=== PATIENT | female | born 1975 | race African-American/Black ===

== ENCOUNTER 2017-09-04 19:18 | Emergency (ER) | payer OTHER ==
[2017-09-04] MEDS: ONDANSETRON PF 4 MG/2 ML VIAL. IV (19:46)
[2017-09-04] MEDS: IV NORMAL SALINE 1000ML BAG 1,000 ML IV (19:46)
[2017-09-04 19:58] LABS: ADD MAN DIFF? NO
[2017-09-04 20:00] LABS: BASO % 0 % (0-3); EOS # 0.1 x10^3/uL (0.0-0.7); EOS % 3 % (0-3); HEMATOCRIT 33.8 % (36.0-47.0); HEMOGLOBIN 11.6 g/dL (12.0-15.5); LYMPH # 1.8 x10^3/uL (1.0-4.8); LYMPH % 44 % (24-48); MEAN CORPUSCULAR HEMOGLOBIN 28 pg (25-35); MEAN CORPUSCULAR HGB CONC 34 g/dL (31-37); MEAN CORPUSCULAR VOLUME 83 fL (79-100); MONO # 0.7 x10^3/uL (0.0-1.1); MONO % 16 % (0-9); NEUT # 1.5 x10^3uL (1.8-7.7); NEUT % 37 % (31-73); PLATELET COUNT 166 x10^3/uL (140-400); WHITE BLOOD COUNT 4.1 x10^3/uL (4.0-11.0)
[2017-09-04 20:18] LABS: TROPONINI < 0.017 ng/mL (0.000-0.055)
[2017-09-04 20:19] LABS: ALBUMIN/GLOBULIN RATIO 0.7 (1.0-1.7); ALK PHOS 93 U/L (46-116); ALT (SGPT) 14 U/L (14-59); ANION GAP 3 (6-14); AST (SGOT) 15 U/L (15-37); BLOOD UREA NITROGEN 7 mg/dL (7-20); BUN/CREATININE RATIO 6 (6-20); CALCIUM 8.5 mg/dL (8.5-10.1); CARBON DIOXIDE 36 mmol/L (21-32); CHLORIDE 105 mmol/L (98-107); CREATININE 1.2 mg/dL (0.6-1.0); GFR 59.3; GLUCOSE 110 mg/dL (70-99); LIPASE 69 U/L (73-393); SODIUM 144 mmol/L (136-145); TOTAL BILIRUBIN 0.3 mg/dL (0.2-1.0); TOTAL PROTEIN 7.4 g/dL (6.4-8.2)
[2017-09-04 20:22] LABS: POTASSIUM 2.7 mmol/L (3.5-5.1)
[2017-09-04] MEDS: POTASSIUM CHLORIDE 20 MEQ TABLET.ER. PO (20:31)
[2017-09-04 20:55] LABS: BILIRUBIN,URINE NEGATIVE (NEG); CLARITY,URINE CLOUDY; COLOR,URINE YELLOW; GLUCOSE,URINE NEGATIVE (NEG); NITRITE,URINE NEGATIVE (NEG); PH,URINE 6.5; PROTEIN,URINE NEGATIVE (NEG-TRACE)
[2017-09-04 21:03] LABS: BACTERIA,URINE MANY /HPF (0-FEW); RBC,URINE 20-40 /HPF (0-2)
[2017-09-04 21:04] LABS: SQUAMOUS EPITHELIAL CELL,UR FEW /LPF
[2017-09-04] MEDS: LIDO:MAALOX 1:1 20 ML SINGLE DOSE. SWSW (21:48)
[2017-09-04] MEDS: IOHEXOL 300 MG/ML 100ML VIAL. IV (22:00)
[2017-09-04] MEDS ORDERED: CONTRAST GIVEN MC (22:00)
[2017-09-04] MEDS: diazePAM 5 MG TABLET PO (22:35)
== END 2017-09-04 23:11 | disposition home or self-care (01) ==
LOC: ER 19:18
DX: R11.2 Nausea with vomiting, unspecified (principal); R10.13 Epigastric pain; R19.7 Diarrhea, unspecified; R05 Cough; E03.9 Hypothyroidism, unspecified; I10 Essential (primary) hypertension; G89.29 Other chronic pain; M54.89 Other dorsalgia; M32.9 Systemic lupus erythematosus, unspecified; E87.6 Hypokalemia; Z90.49 Acquired absence of other specified parts of digestive tract; Z88.0 Allergy status to penicillin
CPT/HCPCS: 36415; 71045; 74177; 80053; 81001; 83690; 84484; 84702; 85025; 87086; 93005; 96361; 96374; 99285-25; J2405; J7030; Q9967

== ENCOUNTER 2021-02-15 16:14 | Emergency (ER) | payer OTHER ==
[~2021-02-15] VITALS: Ht 157.5 cm; Wt 105.0 kg
[~2021-02-15 16:14] MED LIST: GUAI12003 PO; LEVO125T5 PO; METO10TA81 PO; ONDA4TAB12 PO; POTA20TA4 PO; POTA20TA84 PO; PROP10TA PO; SULF1TAB24 PO
[2021-02-15 16:42] VITALS: BP 116/66
[2021-02-15] MEDS ORDERED: CYCL5TAB PO (17:15)
[2021-02-15] MEDS ORDERED: HYDROcodone/APAP 5/325MG 1 TAB TABLET PO ONE (17:15)
[2021-02-15] MEDS ORDERED: KETOROLAC 60 MG/2 ML VIAL. IM ONE (17:15)
[2021-02-15] MEDS ORDERED: IBUP-1007 PO (17:15)
--- NOTE | 2021-02-15 17:15 | PHYS DOC ---
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 She is having lower back pain for last 2 to 3 days that has increased. She states overall she is having lower back pain for the last month. She denies any sharp shooting pain or numbness and tingling, focal weakness. She states she is been taking Aleve. She is rating her pain at 8 out of 10 at this time. She does have a primary care provider but has not made an appointment. Review of Systems: Review of Systems: Constitutional: Denies fever or chills. [] Eyes: Denies change in visual acuity. [] HENT: Denies nasal congestion or sore throat. [] Respiratory: Denies cough or shortness of breath. [] Cardiovascular: Denies chest pain or edema. [] GI: Denies abdominal pain, nausea, vomiting, bloody stools or diarrhea. [] : Denies dysuria. [] Musculoskeletal: +Bilateral lower back pain or denies joint pain. [] Integument: Denies rash. [] Neurologic: Denies headache, focal weakness or sensory changes. [] Endocrine: Denies polyuria or polydipsia. [] Lymphatic: Denies swollen glands. [] Psychiatric: Denies depression or anxiety. [] Heart Score: C/O Chest Pain: No Allergies: Allergies: Allergies Coded Allergies Type Severity Reaction Last Updated Verified Penicillins Allergy Severe swelling and hives 10/09/15 Yes Physical Exam: PE: Constitutional: Well developed, well nourished, no acute distress, non-toxic appearance. [] HENT: Normocephalic, atraumatic, bilateral external ears normal, oropharynx moist, no oral exudates, nose normal. [] Eyes: PERRLA, EOMI, conjunctiva normal, no discharge. [] Neck: Normal range of motion, no tenderness, supple, no stridor. [] Cardiovascular:Heart rate regular rhythm, no murmur [] Lungs & Thorax: Bilateral breath sounds clear to auscultation [] Abdomen: Bowel sounds normal, soft, no tenderness, no masses, no pulsatile masses. [] Skin: Warm, dry, no erythema, no rash. [] Back: No tenderness, no CVA tenderness. [] Extremities: No tenderness, no cyanosis, no clubbing, ROM intact, no edema. [] Neurologic: Alert and oriented X 3, normal motor function, normal sensory function, no focal deficits noted. [] Psychologic: Affect normal, judgement normal, mood normal. [] Normal physical exam Current Patient Data: Vital Signs: Vital Signs Date Time Temp Pulse Resp B/P (MAP) Pulse Ox O2 Delivery O2 Flow Rate FiO2 02/15/21 16:42 98.8 85 20 116/66 (83) 99 Room Air 98.8 EKG: EKG: [] Radiology/Procedures: Radiology/Procedures: [] Course & Med Decision Making: Course & Med Decision Making Pertinent Labs and Imaging studies reviewed. (See chart for details) See HPI. Alert and oriented x4. Ambulatory steady gait. Skin pink warm and dry. Cap refill less than 2 seconds. No focal bony spinal tenderness. Full strengths in range of motion. No extremity edema. No tenderness to her lower back. Neurologically intact. Sensations intact. Denies any loss of bowel bladder. No saddle paresthesia. Patient states she has been using a heating pad at home. Denies any urinary symptoms, fever, abdominal pain, nausea, vomiting, diarrhea. [] Dragon Disclaimer: Dragon Disclaimer: This electronic medical record was generated, in whole or in part, using a voice recognition dictation system. Departure Departure Impression: Primary Impression: Low back strain Qualified Codes: S39.012A - Strain of muscle, fascia and tendon of lower back, initial encounter Disposition: HOME / SELF CARE / HOMELESS Condition: STABLE Referrals: JUANITA RIVERA (PCP) Patient Instructions: Low Back Strain with [facility] Additional Instructions: Follow-up with your primary care provider. Drink plenty of fluids. Take medication as prescribed and with food. Remember muscle relaxers will make you sleepy. Do not work or drive on them. Scripts Cyclobenzaprine Hcl (CYCLOBENZAPRINE HCL) 5 Mg Tablet 1 TAB PO TID, #20 TAB Prov: BRANDIN LUNDBERG MATCHBOOK ASSEMBLER 02/15/21 Ibuprofen (IBUPROFEN) 600 Mg Tablet 600 MG PO PRN Q6HRS PRN for INFLAMMATION, #25 TAB Prov: BRANDIN LUNDBERG APRN 02/15/21 BRANDIN LUNDBERG APRN Feb 15, 2021 17:15
== END 2021-02-15 18:06 | disposition home or self-care (01) ==
LOC: ER 16:14
DX: S39.012A Strain of muscle, fascia and tendon of lower back, initial encounter (principal); J45.909 Unspecified asthma, uncomplicated; I10 Essential (primary) hypertension; E03.9 Hypothyroidism, unspecified; F17.200 Nicotine dependence, unspecified, uncomplicated; Z90.49 Acquired absence of other specified parts of digestive tract; Z98.890 Other specified postprocedural states; Z90.710 Acquired absence of both cervix and uterus; Z88.0 Allergy status to penicillin; X50.9XXA Other and unspecified overexertion or strenuous movements or postures, initial encounter; Y93.89 Activity, other specified; Y92.89 Other specified places as the place of occurrence of the external cause; Y99.8 Other external cause status
CPT/HCPCS: 96372; 99283; J1885

== ENCOUNTER 2021-05-29 12:06 | Emergency (ER) | payer MEDICAID, OTHER ==
[~2021-05-29] VITALS: Ht 157.5 cm; Wt 107.2 kg
[~2021-05-29 12:06] MED LIST changes: +CYCL5TAB PO; +IBUP-1007 PO
[2021-05-29 12:56] LABS: BILIRUBIN,URINE NEGATIVE (NEG); CLARITY,URINE CLOUDY; COLOR,URINE YELLOW; NITRITE,URINE NEGATIVE (NEG); PH,URINE 7.5 (<5.0-8.0); PROTEIN,URINE NEGATIVE (NEG-TRACE)
--- NOTE | 2021-05-29 12:59 | PHYS DOC ---
Past Medical History Past Medical History: Asthma, Hypertension, Hypothyroid Additional Past Medical Histor: SLEEP APNEA Past Surgical History: , Hysterectomy, Tubal ligation, Other Additional Past Surgical Histo: HERNIA Smoking Status: Never Smoker Alcohol Use: None Drug Use: None General Adult EDM: Chief Complaint: FEVER HPI: HPI: Patient is a 45 year old female who presents with 2 weeks of nausea, vomiting, chest pain, cough, chills, lower back pain. She states she last vomited yesterday and it is bile. She states she is vaccinated for Covid but never got tested. She denies abdominal pain, syncope, dizziness, back pain, urinary symptoms, numbness or tingling, focal weakness, vision change. She has a history of tubal ligation, hernia surgery, Covid vaccines x2, asthma, hypertension, hypothyroidism, sleep apnea, , hysterectomy. Rates her discomfort at a 7 out of 10 aching. Review of Systems: Review of Systems: Constitutional: + fever or +chills. [] Eyes: Denies change in visual acuity. [] HENT: Denies nasal congestion or sore throat. [] Respiratory: + Intermittent cough or +shortness of breath. [] Cardiovascular: + Intermittent chest pain or denies edema. [] GI: Denies abdominal pain, nausea, vomiting, bloody stools or diarrhea. [] : Denies dysuria. [] Musculoskeletal: + Low back back pain or joint pain. + Generalized body aches [] Integument: Denies rash. [] Neurologic: Denies headache, focal weakness or sensory changes. [] Endocrine: Denies polyuria or polydipsia. [] Lymphatic: Denies swollen glands. [] Psychiatric: Denies depression or anxiety. [] Heart Score: C/O Chest Pain: Yes HEART Score for Chest Pain: HEART Score for Chest Pain Response (Comments) Value History Slighlty/Non-Suspicious 0 ECG Normal 0 Age >45 - < 65 1 Risk Factors 1 or 2 Risk Factors 1 Troponin < Normal Limit 0 Total 2 Risk Factors: Risk Factors: DM, Current or recent (<one month) smoker, HTN, HLP, family history of CAD, obesity. Risk Scores: Score 0 - 3: 2.5% MACE over next 6 weeks - Discharge Home Score 4 - 6: 20.3% MACE over next 6 weeks - Admit for Clinical Observation Score 7 - 10: 72.7% MACE over next 6 weeks - Early Invasive Strategies Current Medications: Current Medications Medications (Trade) Dose Ordered Sig/Todd Start Time Stop Time Status Last Admin Dose Admin Ketorolac Tromethamine (Toradol 30mg Vial) 30 mg 1X ONCE 05/29/21 12:45 05/29/21 12:46 UNV Ondansetron HCl (Zofran) 4 mg 1X ONCE 05/29/21 12:45 05/29/21 12:46 UNV Sodium Chloride 1,000 ml @ 1,000 mls/hr Q1H 05/29/21 12:45 05/29/21 13:44 UNV Allergies: Allergies: Allergies Coded Allergies Type Severity Reaction Last Updated Verified Penicillins Allergy Severe swelling and hives 10/09/15 Yes Physical Exam: PE: Constitutional: Well developed, well nourished, no acute distress, non-toxic appearance. [] HENT: Normocephalic, atraumatic, bilateral external ears normal, oropharynx mo ist, no oral exudates, nose normal. [] Eyes: PERRLA, EOMI, conjunctiva normal, no discharge. [] Neck: Normal range of motion, no tenderness, supple, no stridor. [] Cardiovascular:Heart rate regular rhythm, no murmur [] Lungs & Thorax: Bilateral upper breath sounds clear lower diminished to auscul tation [] Abdomen: Bowel sounds normal, soft, no tenderness, no masses, no pulsatile masses. [] Skin: Warm, dry, no erythema, no rash. [] Back: No tenderness, no CVA tenderness. [] Extremities: No tenderness, no cyanosis, no clubbing, ROM intact, no edema. [] Neurologic: Alert and oriented X 3, normal motor function, normal sensory function, no focal deficits noted. [] Psychologic: Affect normal, judgement normal, mood normal. [] Current Patient Data: Labs: Laboratory Tests Test 05/29/21 12:40 POC Urine HCG, Qualitative Hcg negative (Negative) Vital Signs: Vital Signs Date Time Temp Pulse Resp B/P (MAP) Pulse Ox O2 Delivery O2 Flow Rate FiO2 05/29/21 12:12 97.7 81 22 124/73 (90) 97 Room Air 97.7 EKG: EK and read by Dr. Muller as a sinus rhythm but no STEMI Radiology/Procedures: Radiology/Procedures: [] Impression: [facility] [address] [place] [address] IMAGING REPORT Signed PATIENT: FRANK SCHAEFER ACCOUNT: [id number] : 1975 LOCATION: ER AGE: 45 SEX: F EXAM STATUS: REG ER ORD. PHYSICIAN: BRANDIN LUNDBERG APRN REASON: CHEST PAIN, COUGH PROCEDURE: PORTABLE CHEST 1V EXAM: XR CHEST 1V 05/29/2021 12:50 PM CLINICAL INDICATION: Chest pain, cough COMPARISON: Chest radiograph 09/04/2017 TECHNIQUE: AP upright view of the chest FINDINGS: The heart and mediastinum are normal. Lungs are well-expanded and clear. No consolidation, pleural effusion, or pneumothorax. Pulmonary vascularity is normal. No acute osseous abnormality. IMPRESSION: Normal chest radiograph. Electronically signed by: Ofe Dawson MD (05/29/2021 1:04 PM) [id number] DICTATED and SIGNED BY: OFE DAWSON MD DATE: 05/29/21 [id number] [address] [address] IMAGING REPORT Signed PATIENT: FRANK SCHAEFER ACCOUNT: [id number] : 1975 LOCATION: ER AGE: 45 SEX: F EXAM STATUS: REG ER ORD. PHYSICIAN: BRANDIN LUNDBERG APRN REASON: nausea, vomting, epigastric pain, elevated liver enzymes PROCEDURE: CT ABD PELV W/ IV CONTRST ONLY CT abdomen pelvis with contrast. HISTORY: Nausea, vomiting, epigastric pain, elevated liver enzymes CT abdomen pelvis was done using 75 mL Isovue-370 contrast. Comparison is made with an old study from August 2017. There is linear atelectasis in both lung bases or scarring without other infiltrates. There is no effusion. There are hepatic cysts. A cyst in the left lobe as increased in size since the old study. Spleen is unremarkable. Adrenal glands are normal. Pancreas is normal. There is a punct ate calculus in the lower right kidney. There is no renal mass. A ureteral calculus is not identified. There are phleboliths in the pelvis. Uterus and ovaries are unremarkable. Appendix is normal. There is no small bowel obstruction. IMPRESSION: 1. Hepatic cysts. 2. Previous cholecystectomy. 3. Punctate intrarenal calculus right kidney. 4. No bowel obstruction. 5. Normal appendix. 6. No other acute finding in the abdomen or pelvis. PQRS Compliance Statement: One or more of the following individualized dose reduction techniques were utilized for this examination: 1. Automated exposure control 2. Adjustment of the mA and/or kV according to patient size 3. Use of iterative reconstruction technique Electronically signed by: Kevyn Vu MD (05/29/2021 2:51 PM) [id number] DICTATED and SIGNED BY: KEVYN VU MD DATE: 05/29/21 [id number] Course & Med Decision Making: Course & Med Decision Making Pertinent Labs and Imaging studies reviewed. (See chart for details) COVID-19 CRITERIA: The patient was evaluated during the global COVID-19 pandemic, and that diagnosis was suspected/considered upon their initial presentation. Their evaluation, treatment and testing was consistent with current guidelines for patients who present with complaints or symptoms that may be related to COVID-19. See HPI. Alert and oriented x4. Ambulatory to steady gait. Speaks in full clear sentences. No respiratory distress. Lungs are clear in upper lobes and diminished in lower lobes. No wheezing or stridor. No extremity edema. Abdomen is soft and nontender. No CVA tenderness. Chest pain is intermittent and more so with movement. Vital signs are within normal limits. She is afebrile. She is not hypoxic. Denies concern for STD or vaginal discharge. UTI present. Rocephin IV given. She is given 1 bag of normal saline bolus. EKG shows no acute findings. Rapid Covid and influenza are negative. CT abdomen pelvis shows no acute findings. [] Dragon Disclaimer: Dragon Disclaimer: This electronic medical record was generated, in whole or in part, using a voice recognition dictation system. COVID-19 Patient Risks: Age 65 or older: No Sign of co-morbidity: Yes Exp to person + for COVID: No Exp to PUI: No Travel from affected area: No Lower respiratory symptoms: Yes Fever: Yes Other: Yes (N,V) PPE Use: Full PPE with N95 mask or PAPR: Yes Departure Departure Impression: Primary Impression: UTI (lower urinary tract infection) Additional Impression: Person under investigation for COVID-19 Disposition: HOME / SELF CARE / HOMELESS Condition: STABLE Referrals: Valdez SINGH MD (PCP) Patient Instructions: Urinary Tract Infection Additional Instructions: Follow-up with your primary care provider. Drink plenty of fluids. Take medication as prescribed and with food. If you begin running a high fever or you cannot keep down any kind of fluids you need to return to the emergency room. Scripts Sulfamethoxazole/Trimethoprim (BACTRIM DS TABLET) 1 Each Tablet 1 TAB PO BID for 7 Days, #14 TAB 0 Refills Prov: BRANDIN LUNDBERG APRN 05/29/21 BRANDIN LUNDBERG APRN May 29, 2021 12:59
[2021-05-29 13:04] LABS: BACTERIA,URINE MANY /HPF (0-FEW); RBC,URINE >40 /HPF (0-2); WBC,URINE 20-40 /HPF (0-4)
--- NOTE | 2021-05-29 13:06 | RAD ---
EXAM: XR CHEST 1V 05/29/2021 12:50 PM CLINICAL INDICATION: Chest pain, cough COMPARISON: Chest radiograph 09/04/2017 TECHNIQUE: AP upright view of the chest FINDINGS: The heart and mediastinum are normal. Lungs are well-expanded and clear. No consolidatio n, pleural effusion, or pneumothorax. Pulmonary vascularity is normal. No acute osseous abnormality. IMPRESSION: Normal chest radiograph. Electronically signed by: Ofe Dawson MD (05/29/2021 1:04 PM) [id number]
[2021-05-29] MEDS: IV NORMAL SALINE 1000ML BAG 1,000 ML IV SCH (13:21)
[2021-05-29] MEDS: KETOROLAC 30 MG/ML VIAL. IVP ONE (13:22)
[2021-05-29] MEDS: ONDANSETRON PF 4 MG/2 ML VIAL. IVP ONE (13:22)
[2021-05-29 13:23] LABS: INFLUENZA A PATIENT NEGATIVE (NEGATIVE); INFLUENZA B PATIENT NEGATIVE (NEGATIVE)
[2021-05-29 13:33] LABS: BASO % 1 % (0-3); EOS # 0.2 x10^3/uL (0.0-0.7); EOS % 4 % (0-3); HEMATOCRIT 35.1 % (36.0-47.0); HEMOGLOBIN 11.5 g/dL (12.0-15.5); LYMPH # 2.9 x10^3/uL (1.0-4.8); LYMPH % 57 % (24-48); MEAN CORPUSCULAR HEMOGLOBIN 27 pg (25-35); MEAN CORPUSCULAR HGB CONC 33 g/dL (31-37); MEAN CORPUSCULAR VOLUME 82 fL (79-100); MONO # 0.3 x10^3/uL (0.0-1.1); MONO % 5 % (0-9); NEUT # 1.7 x10^3/uL (1.8-7.7); NEUT % 33 % (31-73); PLATELET COUNT 164 x10^3/uL (140-400); RED BLOOD COUNT 4.27 x10^6/uL (3.50-5.40); RED CELL DISTRIBUTION WIDTH 14.9 % (11.5-14.5); WHITE BLOOD COUNT 5.1 x10^3/uL (4.0-11.0)
[2021-05-29 13:53] LABS: CALCIUM 8.3 mg/dL (8.5-10.1); CREATININE 1.1 mg/dL (0.6-1.0); GFR 64.7; POTASSIUM 4.1 mmol/L (3.5-5.1)
[2021-05-29] MEDS: cefTRIAXone IV Push 1 GM VIAL. IVP ONE (13:58)
[2021-05-29 14:02] LABS: ALBUMIN 3.5 g/dL (3.4-5.0); ALBUMIN/GLOBULIN RATIO 0.7 (1.0-1.7); MAGNESIUM 2.4 mg/dL (1.8-2.4); TOTAL BILIRUBIN 0.3 mg/dL (0.2-1.0); TOTAL PROTEIN 8.6 g/dL (6.4-8.2)
[2021-05-29] MEDS: IOHEXOL 300 MG/ML 100ML VIAL. IV ONE (14:25)
[2021-05-29] MEDS ORDERED: CONTRAST GIVEN. MC PRN (14:30)
--- NOTE | 2021-05-29 14:35 | EKG ---
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
--- NOTE | 2021-05-29 14:53 | RAD ---
CT abdomen pelvis with contrast. HISTORY: Nausea, vomiting, epigastric pain, elevated liver enzymes CT abdomen pelvis was done using 75 mL Isovue-370 contrast. Comparison is made with an old study from August 2017. There is linear atelectasis in both lung bases or scarring without other infiltrates. Ther e is no effusion. There are hepatic cysts. A cyst in the left lobe as increased in size since the old study. Spleen is unremarkable. Adrenal glands are normal. Pancreas is normal. There is a punctate ca lculus in the lower right kidney. There is no renal mass. A ureteral calculus is not identified. Ther e are phleboliths in the pelvis. Uterus and ovaries are unremarkable. Appendix is normal. There is no small bowel obstruction. IMPRESSION: 1. Hepatic cysts. 2. Previous cholecystectomy. 3. Punctate intrarenal calculus right kidney. 4. No bowel obstruction. 5. Normal appendix. 6. No other acute finding in the abdomen or pelvis. PQRS Compliance Statement: One or more of the following individualized dose reduction techniques were utilized for this examinat ion: 1. Automated exposure control 2. Adjustment of the mA and/or kV according to patient size 3. Use of iterative reconstruction technique Electronically signed by: Kevyn Vu MD (05/29/2021 2:51 PM) [id number]
[2021-05-29 15:11] LABS: AMPHETAMINE/METHAMPHETAMINE NEG (NEG); BARBITURATES NEG (NEG); BENZODIAZEPINES NEG (NEG); CANNABINOIDS NEG (NEG); COCAINE NEG (NEG); METHADONE NEG (NEG); OPIATES POS (NEG); PHENCYCLIDINE NEG (NEG)
[2021-05-29 15:18] VITALS: BP 101/72
[2021-05-29] MEDS ORDERED: SULF1TAB24 PO (15:23)
--- NOTE | 2021-05-30 15:56 | NUR ---
IP: Informed pt of negative covid test. She verbalized understanding.
== END 2021-05-29 15:31 | disposition home or self-care (01) ==
LOC: ER 12:06
DX: N39.0 Urinary tract infection, site not specified (principal); Z20.822 Contact with and (suspected) exposure to COVID-19; R07.89 Other chest pain; R11.2 Nausea with vomiting, unspecified; J45.909 Unspecified asthma, uncomplicated; I10 Essential (primary) hypertension; E03.9 Hypothyroidism, unspecified; Z90.710 Acquired absence of both cervix and uterus; Z98.51 Tubal ligation status; Z88.0 Allergy status to penicillin
CPT/HCPCS: 36415; 71045; 74177; 80053; 80307; 81001; 81025; 83690; 83735; 84484; 85025; 87077; 87086; 87186; 87428; 93005; 96361; 96374; 96375; 99285; J0696; J1885; J2405; J7030; Q9967; U0003; U0005

== ENCOUNTER → 2021-07-03 | Outpatient (CLI) | payer MEDICAID ==
--- NOTE | 2021-07-03 15:59 | RAD ---
XR LUMBAR SPINE 4+V DATE: 07/03/2021 1:58 PM INDICATION: LUMBAR BACK PAIN COMPARISON: CT abdomen pelvis 05/29/2021. FINDINGS: Five non-rib bearing lumbar-type vertebral bodies are present. Bones/Alignment: No evidence of acute compression fracture. There is no listhesis. Joints: Mild degenerative disc disease. Miscellaneous: None. IMPRESSION: Mild lumbar spondylosis. Electronically signed by: Thomas Pena MD (07/03/2021 3:57 PM) [id number]
== END ==
LOC: RAD 13:44
PROVIDERS: ATTEND Family Medicine
DX: M47.816 Spondylosis without myelopathy or radiculopathy, lumbar region (principal); M51.36 Other intervertebral disc degeneration, lumbar region
CPT/HCPCS: 72110

== ENCOUNTER 2021-07-14 06:29 | Observation (INO) | payer MEDICAID ==
[2021-07-14] VITALS (9 sets, daily range): BP systolic 87–102; BP diastolic 51–58
[~2021-07-14] VITALS: Ht 160 cm; Wt 109.0 kg
--- NOTE | 2021-07-14 06:46 | PHYS DOC ---
Past Medical History Past Medical History: Asthma, Hypertension, Hypothyroid Additional Past Medical Histor: SLEEP APNEA Past Surgical History: , Hysterectomy, Tubal ligation, Other Additional Past Surgical Histo: HERNIA Smoking Status: Never Smoker Alcohol Use: None Drug Use: None General Adult EDM: Chief Complaint: ABDOMINAL PAIN HPI: HPI: 45-year-old female past medical history of asthma, hypertension and hypothyroidism, presents the ED with complaints of bilateral diffuse upper abdominal pain with associated nausea and anorexia that started at 9 PM last night. Reports past surgical history of cholecystectomy. Normal brown bowel m ovement last night. Is vaccinated for COVID. Review of Systems: Review of Systems: Constitutional: Denies fever or chills. [] Eyes: Denies change in visual acuity. [] HENT: Denies nasal congestion or sore throat. [] Respiratory: Denies cough or shortness of breath. [] Cardiovascular: Denies chest pain or edema. [] GI: Denies bloody stools or diarrhea. [] : Denies dysuria or hematuria Musculoskeletal: Denies back pain or joint pain. [] Integument: Denies rash or diaphoresis Neurologic: Denies headache, focal weakness or sensory changes. [] Endocrine: Denies polyuria or polydipsia. [] Lymphatic: Denies swollen glands. [] Psychiatric: Denies depression or anxiety. [] Heart Score: C/O Chest Pain: No Risk Factors: Risk Factors: DM, Current or recent (<one month) smoker, HTN, HLP, family history of CAD, obesity. Risk Scores: Score 0 - 3: 2.5% MACE over next 6 weeks - Discharge Home Score 4 - 6: 20.3% MACE over next 6 weeks - Admit for Clinical Observation Score 7 - 10: 72.7% MACE over next 6 weeks - Early Invasive Strategies Allergies: Allergies: Allergies Coded Allergies Type Severity Reaction Last Updated Verified Penicillins Allergy Severe swelling and hives 10/09/15 Yes Physical Exam: PE: Constitutional: no acute distress, non-toxic appearance. HENT: Normocephalic, atraumatic, dry mucous membranes Eyes: EOMI, conjunctiva normal, no discharge. Neck: Normal range of motion, supple, Cardiovascular: S1/2 present, regular rhythm Lungs & Thorax: Speaking in full sentences, bilateral equal chest rise, no tachypnea or increased work of breathing Abdomen: soft, diffuse tenderness, tolerates palpation right lower quadrant Skin: Warm, dry, no erythema, no rash. [] Extremities: No tenderness, no cyanosis, no lower extremity edema Neurologic: Alert and oriented X 3, normal motor function, normal sensory function, no focal deficits noted. [] Psychologic: Affect normal, judgement normal, mood normal. [] EKG: EKG: [] Radiology/Procedures: Radiology/Procedures: []IMAGING REPORT Signed PATIENT: FRANK SCHAEFER ACCOUNT: [id number] : 1975 LOCATION: ER AGE: 45 SEX: F EXAM STATUS: PRE ER ORD. PHYSICIAN: CHERY MORROW DO REASON: abd pain PROCEDURE: CT ABD PELV W/ IV CONTRST ONLY CT abdomen pelvis with contrast. HISTORY: Abdominal pain CT abdomen pelvis was done using 60 mL Omnipaque 300 contrast. Comparison is made with a study from May 29. There is mild atelectasis in the lung bases without other infiltrates. There is no pleural effusion. There are hepatic cysts without change from the old study. Spleen is normal. Adrenal glands are normal. Pancreas is unremarkable. There is a calculus in the lower pole of the right kidney without change. There are phleboliths in the pelvis. The appendix is enlarged with periappendiceal inflammation consistent with an acute appendicitis. The appendix is retrocecal in location. There is no free air. Free fluid in the pelvis. Uterus and ovaries are unremarkable. There is no bowel obstruction. IMPRESSION: 1. Acute appendicitis. 2. Punctate calculus right kidney PQRS Compliance Statement: One or more of the following individualized dose reduction techniques were util ized for this examination: 1. Automated exposure control 2. Adjustment of the mA and/or kV according to patient size 3. Use of iterative reconstruction technique Electronically signed by: Kevyn Vu MD (07/14/2021 8:24 AM) [id number] DICTATED and SIGNED BY: KEVYN VU MD DATE: 07/14/21 0818 Course & Med Decision Making: Course & Med Decision Making Pertinent Labs and Imaging studies reviewed. (See chart for details) Concern for acute appendicitis. Has been n.p.o. for more than 12 hours. Is vaccinated for COVID. Small leukocytosis with no shift on labs. Labs also show hypokalemia, replacement started in the ED. Patient with chronic renal failure. Will admit for further medical management with surgery consulted. Spoke to Dr. Delgado (gen surgery) regarding this patient. I have spoken with the patient and/or caregivers. I have explained the patient's condition, diagnosis and treatment plan based on the information available to me at this time. I have answered the patient's and/or caregivers questions and answered any concerns. The patient and/or caregivers have as good an understanding of the patient's diagnosis, condition and treatment plan as can be expected at this point. The patient has been stabilized within the capability of the emergency department. The patient will be transported for further care and management or will be moved to an observation or inpatient service. I have communicated with the staff or medical practitioner taking over this patient's care. Dragon Disclaimer: Dragon Disclaimer: This electronic medical record was generated, in whole or in part, using a voice recognition dictation system. Departure Departure Impression: Primary Impression: Acute appendicitis Additional Impressions: Renal insufficiency Hypokalemia Disposition: ADMITTED INPATIENT Admitting Physician: LOPEZ (Dr. Epps) Condition: STABLE Referrals: Valdez SINGH MD (PCP) CHERY MORROW DO Jul 14, 2021 06:46
[2021-07-14 06:50] LABS: BASO % 0 % (0-3); EOS # 0.1 x10^3/uL (0.0-0.7); EOS % 1 % (0-3); HEMATOCRIT 35.7 % (36.0-47.0); HEMOGLOBIN 11.7 g/dL (12.0-15.5); LYMPH # 1.5 x10^3/uL (1.0-4.8); LYMPH % 12 % (24-48); MEAN CORPUSCULAR HEMOGLOBIN 26 pg (25-35); MEAN CORPUSCULAR HGB CONC 33 g/dL (31-37); MEAN CORPUSCULAR VOLUME 80 fL (79-100); MONO # 0.9 x10^3/uL (0.0-1.1); MONO % 7 % (0-9); NEUT # 9.6 x10^3/uL (1.8-7.7); NEUT % 80 % (31-73); PLATELET COUNT 224 x10^3/uL (140-400); RED BLOOD COUNT 4.47 x10^6/uL (3.50-5.40); RED CELL DISTRIBUTION WIDTH 14.4 % (11.5-14.5); WHITE BLOOD COUNT 12.1 x10^3/uL (4.0-11.0)
[2021-07-14 07:30] LABS: PREG TEST PT QUAL NEGATIVE (NEG)
[2021-07-14 07:33] LABS: ALBUMIN 3.9 g/dL (3.4-5.0); CALCIUM 9.7 mg/dL (8.5-10.1); CREATININE 1.4 mg/dL (0.6-1.0); DIRECT BILIRUBIN 0.1 mg/dL (0.0-0.2); TOTAL BILIRUBIN 0.4 mg/dL (0.2-1.0)
[2021-07-14 07:37] LABS: POTASSIUM 2.9 mmol/L (3.5-5.1)
[2021-07-14] MEDS ORDERED: IOHEXOL 300 MG/ML 100ML VIAL. IV ONE (08:00)
[2021-07-14] MEDS ORDERED: CONTRAST GIVEN. MC PRN (08:15)
--- NOTE | 2021-07-14 08:26 | RAD ---
CT abdomen pelvis with contrast. HISTORY: Abdominal pain CT abdomen pelvis was done using 60 mL Omnipaque 300 contrast. Comparison is made with a study from F ebruary 1. There is mild atelectasis in the lung bases without other infiltrates. There is no pleural effusion. There are hepatic cysts without change from the old study. Spleen is normal. Adrenal gland s are normal. Pancreas is unremarkable. There is a calculus in the lower pole of the right kidney wit hout change. There are phleboliths in the pelvis. The appendix is enlarged with periappendiceal infla mmation consistent with an acute appendicitis. The appendix is retrocecal in location. There is no fr ee air. Free fluid in the pelvis. Uterus and ovaries are unremarkable. There is no bowel obstruction. IMPRESSION: 1. Acute appendicitis. 2. Punctate calculus right kidney PQRS Compliance Statement: One or more of the following individualized dose reduction techniques were utilized for this examinat ion: 1. Automated exposure control 2. Adjustment of the mA and/or kV according to patient size 3. Use of iterative reconstruction technique Electronically signed by: Kevyn Vu MD (07/14/2021 8:24 AM) [id number]
[2021-07-14] MEDS ORDERED: IV NORMAL SALINE 1000ML BAG 1,000 ML IV SCH (08:30)
[2021-07-14] MEDS ORDERED: MORPHINE SULFATE 4 MG/ML INJ. IVP PRN (08:30)
[2021-07-14] MEDS ORDERED: cefOXitin SODIUM IV Push 2 GM VIAL. IVP ONE (08:45)
[2021-07-14] MEDS ORDERED: ONDANSETRON PF 4 MG/2 ML VIAL. IVP ONE (08:45)
[2021-07-14] MEDS ORDERED: BUPIVACAINE-EPI 0.25%-1:200000 MPF 30 ML VIAL. ONE (08:59)
[2021-07-14] MEDS: POTASSIUM CHLORIDE 10MEQ 100 ML IV SCH ×4 (09:04→13:55)
[2021-07-14] MEDS ORDERED: PROCHLORPERAZINE 10 MG/2 ML VIAL. IVP PRN (09:15)
[2021-07-14] MEDS ORDERED: IV RINGERS,LACTATED 1000ML 1,000 ML IV SCH (09:15)
[2021-07-14] MEDS ORDERED: fentaNYL PF VIAL 100 MCG/2 ML VIAL IVP PRN ×2 (09:15)
[2021-07-14] MEDS ORDERED: HYDROmorphone 2 MG/ML INJ. IVP PRN (09:15)
[2021-07-14] MEDS ORDERED: ROCURONIUM 50 MG/5 ML VIAL. ONE (09:32)
[2021-07-14] MEDS ORDERED: LIDOCAINE 2% PF 5 ML VIAL. ONE (09:33)
[2021-07-14] MEDS ORDERED: PROPOFOL 10 MG/ML (20ML) VIAL. IV ONE (09:33)
[2021-07-14] MEDS ORDERED: ONDANSETRON PF 4 MG/2 ML VIAL. ONE (09:33)
[2021-07-14] MEDS ORDERED: fentaNYL PF VIAL 100 MCG/2 ML VIAL ONE (09:33)
[2021-07-14] MEDS ORDERED: DEXAMETHASONE SOD PHOS 4 MG/ML VIAL ONE (09:33)
--- NOTE | 2021-07-14 09:43 | PDOC2 ---
CONSULT Date of Consult Date of Consult DATE: 07/14/21 TIME: 09:40 Reason for Consult Reason for Consult: Acute appendicitis Referring Physician Referring Physician: Nidhi Identification/Chief Complaint Chief Complaint Abdominal pain Source Source: Chart review, Patient History of Present Illness Reason for Visit: 45-year-old female who is seen in the emergency department with complaints of right lower quadrant abdominal pain nausea for the last 24 hours. Mildly elevated white count CT scan shows signs consistent with acute appendicitis without rupture or abscess Past Medical History Cardiovascular: HTN Pulmonary: Asthma GI: No pertinent hx Heme/Onc: No pertinent hx Hepatobiliary: No pertinent hx Psych: No pertinent hx Rheumatologic: No pertinent hx ENT: No pertinent hx Renal/: No pertinent hx Endocrine: No pertinent hx Dermatology: No pertinent hx Past Surgical History Past Surgical History: , Hernia Repair, Tubal Ligation Family History Family History: No Significant Social History No ALCOHOL: none Drugs: None Lives: with Family Current Problem List Problem List Problems Medical Problems: (1) Acute appendicitis Status: Acute (2) Hypokalemia Status: Acute (3) Renal insufficiency Status: Acute Current Medications Current Medications Current Medications Iohexol (Omnipaque 300 Mg/ml) 60 ml 1X ONCE IV Last administered on 07/14/21at 08:09; Start 07/14/21 at 08:00; Stop 07/14/21 at 08:01; Status DC Info (CONTRAST GIVEN -- Rx MONITORING) 1 each PRN DAILY PRN MC SEE COMMENTS; Start 07/14/21 at 08:15; Stop 07/14/21 at 09:37; Status DC Cefoxitin Sodium (Mefoxin) 2 gm 1X ONCE IVP Last administered on 07/14/21at 09:01; Start 07/14/21 at 08:45; Stop 07/14/21 at 08:46; Status DC Morphine Sulfate (Morphine Sulfate) 4 mg PRN Q2HR PRN IVP PAIN Last administered on 07/14/21at 08:48; Start 07/14/21 at 08:30; Stop 07/14/21 at 09:37; Status DC Sodium Chloride 1,000 ml @ 100 mls/hr Q10H IV Last administered on 07/14/21at 08:46; Start 07/14/21 at 08:30; Stop 07/14/21 at 09:37; Status DC Ondansetron HCl (Zofran) 4 mg 1X ONCE IVP Last administered on 07/14/21at 08:47; Start 07/14/21 at 08:45; Stop 07/14/21 at 08:46; Status DC Potassium Chloride/Water 100 ml @ 100 mls/hr Q1H IV Last administered on 07/14/21at 09:04; Start 07/14/21 at 09:00; Stop 07/14/21 at 09:37; Status DC Bupivacaine HCl/ Epinephrine Bitart (Sensorcaine-Epi 0.25%-1:965625 Mpf) 30 ml STK-MED ONCE .ROUTE ; Start 07/14/21 at 08:59; Stop 07/14/21 at 08:59; Status DC Fentanyl Citrate (Fentanyl 2ml Vial) 25 mcg PRN Q5MIN PRN IVP MILD PAIN 1-3; Start 07/14/21 at 09:15; Stop 07/14/21 at 09:37; Status DC Fentanyl Citrate (Fentanyl 2ml Vial) 50 mcg PRN Q5MIN PRN IVP MODERATE PAIN 4- 6; Start 07/14/21 at 09:15; Stop 07/14/21 at 09:37; Status DC Morphine Sulfate (Morphine Sulfate) 1 mg PRN Q10MIN PRN IVP SEVERE PAIN 7-10; Start 07/14/21 at 09:15; Stop 07/14/21 at 09:37; Status DC Ringer's Solution 1,000 ml @ 30 mls/hr Q24H IV ; Start 07/14/21 at 09:15; Stop 07/14/21 at 09:37; Status DC Hydromorphone HCl (Dilaudid) 0.5 mg PRN Q10MIN PRN IVP SEVERE PAIN 7-10, 2nd CHOICE; Start 07/14/21 at 09:15; Stop 07/14/21 at 09:37; Status DC Prochlorperazine Edisylate (Compazine) 5 mg PACU PRN PRN IVP NAUSEA, MRX1; Start 07/14/21 at 09:15; Stop 07/14/21 at 09:37; Status DC Rocuronium Warren (Zemuron) 50 mg STK-MED ONCE .ROUTE ; Start 07/14/21 at 09:32; Stop 07/14/21 at 09:33; Status DC Fentanyl Citrate (Fentanyl 2ml Vial) 100 mcg STK-MED ONCE .ROUTE ; Start 06/26 01/17 at 09:33; Stop 07/14/21 at 09:33; Status DC Propofol (Diprivan) 200 mg STK-MED ONCE IV ; Start 07/14/21 at 09:33; Stop at 09:33; Status DC Lidocaine HCl (Lidocaine Pf 2% Vial) 5 ml STK-MED ONCE .ROUTE ; Start 07/14/21 at 09:33; Stop 07/14/21 at 09:34; Status DC Dexamethasone Sodium Phosphate (Decadron) 4 mg STK-MED ONCE .ROUTE ; Start 07/14/21 at 09:33; Stop 07/14/21 at 09:34; Status DC Ondansetron HCl (Zofran) 4 mg STK-MED ONCE .ROUTE ; Start 07/14/21 at 09:33; Stop 07/14/21 at 09:34; Status DC Active Scripts Active Bactrim Ds Tablet (Sulfamethoxazole/Trimethoprim) 1 Each Tablet 1 Tab PO BID 7 Days Cyclobenzaprine Hcl 5 Mg Tablet 1 Tab PO TID Ibuprofen 600 Mg Tablet 600 Mg PO PRN Q6HRS PRN Mucinex (Guaifenesin) 1,200 Mg Tbmp.12hr 1 Tab PO BID Ondansetron Odt (Ondansetron) 4 Mg Tab.rapdis 1 Tab PO PRN Q6-8HRS PRN Potassium Chloride (Potassium Chloride) 20 Meq Tablet.er 20 Meq PO DAILY Reglan (Metoclopramide Hcl) 10 Mg Tablet 1 Tab PO TID Bactrim Ds Tablet (Sulfamethoxazole/Trimethoprim) 1 Each Tablet 1 Tab PO BID Reported K-Tab ER (Potassium Chloride) 20 Meq Tablet.er 20 Meq PO Propranolol Hcl 10 Mg Tablet 10 Mg PO Levothyroxine Sodium 125 Mcg Tablet 250 Mcg PO Allergies Allergies: Coded Allergies: Penicillins (Verified Allergy, Severe, swelling and hives, 07/14/21) Has tolerated rocephin latex (Verified Allergy, Unknown, 07/14/21) ROS General: No: Chills, Night Sweats, Fatigue, Malaise, Appetite, Other PSYCHOLOGICAL ROS: No: Anxiety, Behavioral Disorder, Concentration difficultie, Decreased libido, Depression, Disorientation, Hallucinations, Hostility, Irritablity, Memory difficulties, Mood Swings, Obsessive thoughts, Physical abuse, Sexual abuse, Sleep disturbances, Suicidal ideation, Other Eyes: No Blurry vision, No Decreased vision, No Double vision, No Dry eyes, No Excessive tearing, No Eye Pain, No Itchy Eyes, No Loss of vision, No Photophobia, No Scotomata, No Uses contacts, No Uses glasses, No Other HEENT: No: Heacaches, Visual Changes, Hearing change, Nasal congestion, Nasal discharge, Oral lesions, Sinus pain, Sore Throat, Epistaxis, Sneezing, Snoring, Tinnitus, Vertigo, Vocal changes, Other ALLERGY AND IMMUNOLOGY: No: Hives, Insect Bite Sensitivity, Itchy/Watery Eyes, Nasal Congestion, Post Nasal Drip, Seasonal Allergies, Other Hematological and Lymphatic: No: Bleeding Problems, Blood Clots, Blood Transfusions, Brusing, Night Sweats, Pallor, Swollen Lymph Nodes, Other ENDOCRINE: No: Breast Changes, Galactorrhea, Hair Pattern Changes, Hot Flashes, Malaise/lethargy, Mood Swings, Palpitations, Polydipsia/polyuria, Skin Changes, Temperature Intolerance, Unexpected Weight Changes, Other Breast: No New/Changing Breast Lumps, No Nipple changes, No Nipple discharge, No Other Respiratory: No: Cough, Hemoptysis, Orthopnea, Pleuritic Pain, Shortness of breath, SOB with excertion, Sputum Changes, Stridor, Tachypnea, Wheezing, Other Gastrointestinal: Yes Nausea, Yes Abdominal Pain Genitourinary: No Dysuria, No Frequency, No Incontinence, No Hematuria, No Retention, No Discharge, No Urgency, No Pain, No Flank Pain, No Other, No , No , No , No , No , No , No Musculoskeletal: No Gait Disturbance, No Joint Pain, No Joint Stiffness, No Joint Swelling, No Muscle Pain, No Muscular Weakness, No Pain In:, No Swelling In:, No Other Neurological: No Behavorial Changes, No Bowel/Bladder ControlChng, No Confusion, No Dizziness, No Gait Disturbance, No Headaches, No Impaired Coord/balance, No Memory Loss, No Numbness/Tingling, No Seizures, No Speech Problems, No Tremors, No Visual Changes, No Weakness, No Other Skin: No Dry Skin, No Eczema, No Hair Changes, No Lumps, No Mole Changes, No Mottling, No Nail Changes, No Pruritus, No Rash, No Skin Lesion Changes, No Other, No Acne Physical Exam General: Alert, Oriented X3, Cooperative, mild distress HEENT: Atraumatic, PERRLA, EOMI Lungs: Clear to auscultation, Normal air movement Heart: Regular rate, No murmurs Abdomen: Normal bowel sounds, Soft, Other (Tender to palpation right lower quadrant no peritoneal signs) Extremities: No edema Skin: No significant lesion Neuro: Normal speech Psych/Mental Status: Mental status NL Vitals VITALS Vital Signs Date Time Temp Pulse Resp B/P (MAP) Pulse Ox O2 Delivery O2 Flow Rate FiO2 07/14/21 09:08 16 99 Room Air 07/14/21 08:30 98 126/74 (91) 07/14/21 06:39 97.9 97.9 Labs Labs Laboratory Tests Test 07/14/21 06:35 07/14/21 07:10 07/14/21 08:45 White Blood Count 12.1 x10^3/uL (4.0-11.0) Red Blood Count 4.47 x10^6/uL (3.50-5.40) Hemoglobin 11.7 g/dL (12.0-15.5) Hematocrit 35.7 % (36.0-47.0) Mean Corpuscular Volume 80 fL (79-100) Mean Corpuscular Hemoglobin 26 pg (25-35) Mean Corpuscular Hemoglobin Concent 33 g/dL (31-37) Red Cell Distribution Width 14.4 % (11.5-14.5) Platelet Count 224 x10^3/uL (140-400) Neutrophils (%) (Auto) 80 % (31-73) Lymphocytes (%) (Auto) 12 % (24-48) Monocytes (%) (Auto) 7 % (0-9) Eosinophils (%) (Auto) 1 % (0-3) Basophils (%) (Auto) 0 % (0-3) Neutrophils # (Auto) 9.6 x10^3/uL (1.8-7.7) Lymphocytes # (Auto) 1.5 x10^3/uL (1.0-4.8) Monocytes # (Auto) 0.9 x10^3/uL (0.0-1.1) Eosinophils # (Auto) 0.1 x10^3/uL (0.0-0.7) Basophils # (Auto) 0.0 x10^3/uL (0.0-0.2) Sodium Level 138 mmol/L (136-145) Potassium Level 2.9 mmol/L (3.5-5.1) Chloride Level 96 mmol/L (98-107) Carbon Dioxide Level 31 mmol/L (21-32) Anion Gap 11 (6-14) Blood Urea Nitrogen 14 mg/dL (7-20) Creatinine 1.4 mg/dL (0.6-1.0) Estimated GFR (Cockcroft-Gault) 49.0 Glucose Level 175 mg/dL (70-99) Calcium Level 9.7 mg/dL (8.5-10.1) Total Bilirubin 0.4 mg/dL (0.2-1.0) Direct Bilirubin 0.1 mg/dL (0.0-0.2) Aspartate Amino Transf (AST/SGOT) 24 U/L (15-37) Alanine Aminotransferase (ALT/SGPT) 44 U/L (14-59) Alkaline Phosphatase 146 U/L (46-116) Total Protein 10.0 g/dL (6.4-8.2) Albumin 3.9 g/dL (3.4-5.0) Lipase 28 U/L (73-393) Serum Test, Qualitative Negative (NEG) SARS-CoV-2 Antigen (Rapid) Negative (NEGATIVE) Laboratory Tests Test 07/14/21 06:35 07/14/21 07:10 07/14/21 08:45 White Blood Count 12.1 x10^3/uL (4.0-11.0) Red Blood Count 4.47 x10^6/uL (3.50-5.40) Hemoglobin 11.7 g/dL (12.0-15.5) Hematocrit 35.7 % (36.0-47.0) Mean Corpuscular Volume 80 fL (79-100) Mean Corpuscular Hemoglobin 26 pg (25-35) Mean Corpuscular Hemoglobin Concent 33 g/dL (31-37) Red Cell Distribution Width 14.4 % (11.5-14.5) Platelet Count 224 x10^3/uL (140-400) Neutrophils (%) (Auto) 80 % (31-73) Lymphocytes (%) (Auto) 12 % (24-48) Monocytes (%) (Auto) 7 % (0-9) Eosinophils (%) (Auto) 1 % (0-3) Basophils (%) (Auto) 0 % (0-3) Neutrophils # (Auto) 9.6 x10^3/uL (1.8-7.7) Lymphocytes # (Auto) 1.5 x10^3/uL (1.0-4.8) Monocytes # (Auto) 0.9 x10^3/uL (0.0-1.1) Eosinophils # (Auto) 0.1 x10^3/uL (0.0-0.7) Basophils # (Auto) 0.0 x10^3/uL (0.0-0.2) Sodium Level 138 mmol/L (136-145) Potassium Level 2.9 mmol/L (3.5-5.1) Chloride Level 96 mmol/L (98-107) Carbon Dioxide Level 31 mmol/L (21-32) Anion Gap 11 (6-14) Blood Urea Nitrogen 14 mg/dL (7-20) Creatinine 1.4 mg/dL (0.6-1.0) Estimated GFR (Cockcroft-Gault) 49.0 Glucose Level 175 mg/dL (70-99) Calcium Level 9.7 mg/dL (8.5-10.1) Total Bilirubin 0.4 mg/dL (0.2-1.0) Direct Bilirubin 0.1 mg/dL (0.0-0.2) Aspartate Amino Transf (AST/SGOT) 24 U/L (15-37) Alanine Aminotransferase (ALT/SGPT) 44 U/L (14-59) Alkaline Phosphatase 146 U/L (46-116) Total Protein 10.0 g/dL (6.4-8.2) Albumin 3.9 g/dL (3.4-5.0) Lipase 28 U/L (73-393) Serum Test, Qualitative Negative (NEG) SARS-CoV-2 Antigen (Rapid) Negative (NEGATIVE) Assessment/Plan Assessment/Plan Acute appendicitis plan laparoscopic appendectomy KIMANI MARR MD Jul 14, 2021 09:43
[2021-07-14] MEDS ORDERED: KETOROLAC 30 MG/ML VIAL. ONE (09:55)
[2021-07-14] MEDS ORDERED: SURGICEL HEMOSTAT 4X8 EACH. ONE (10:23)
[2021-07-14] MEDS ORDERED: NEOSTIGMINE METHYLSULFATE 5 MG/5 ML SYRINGE. ONE (10:36)
[2021-07-14] MEDS ORDERED: GLYCOPYRROLATE 1 MG/5 ML VIAL. ONE (10:37)
--- NOTE | 2021-07-14 10:56 | PDOC4 ---
Operative Note Operative Note Date: July 142021 at 10:33 AM Preoperative diagnosis: Acute appendicitis Postoperative diagnosis: Same Procedure: Laparoscopic appendectomy Surgeon: Danny Specimen: Appendix Dictation: Patient is a 45-year-old female with right lower quadrant abdominal pain and a CT scan showing signs consistent with acute appendicitis. Procedure of laparoscopic appendectomy explained to the patient detail risk-benefit were also discussed including bleeding infection injury to intra-abdominal contents possible necessitating further open operations. Alternatives to this procedure also discussed with the patient who seemed to understand and gave a verbal written consent had procedure performed. Patient was taken to the operating room placed in the supine position general anesthesia was initiated once patient was sleeping intubated her abdomen was prepped draped in usual sterile fashion using ChloraPrep. Area in the left upper quadrant was injected with quarter percent Marcaine with epinephrine incision was made 11 blade scalpel and a 5 mm Visiport was placed under direct visualization into the abdomen creating pneumoperitoneum the abdomen was then inspected with 5 mm camera was noted she had quite a few adhesions from the umbilicus down to the pelvis secondary to her and umbilical hernia repair. 5 mm port was placed in the left lower abdomen under direct visualization some adhesions were taken down with sharp dissection a 5 mm port was placed in the right midabdomen and a 12 mm port was placed just above the umbilicus at the midline. The appendix was visualized was retrocecal blunt dissection was used to create a window at the base of the appendix with a [place] dissector Endo EVIN stapler was used to staple and transect the base the appendix was noted there was some bleeding after the appendix been stapled this was controlled with Surgicel the mesoappendix was stapled and transected in a similar fashion. The appendix placed in Endo Catch bag removed and the 12 mm port site the Surgicel was removed the right lower quadrant irrigated and suctioned dry Francesca powder was then placed in the right gutter along where the bleeding had been hemostasis deemed to be appropriate at that point and the pneumoperitoneum was reduced all ports removed the fascial defect at the 12 mm port site was closed with [id number] Vicryl suture and the skin was reapproximated port sites for subcuticular Monocryl Mastisol Steri-Strips and island dressings were applied. Patient was awakened and extubated operating room taken recovery in stable condition all sponge instrument needle counts listed as correct estimated blood loss 30 mL. KIMANI MARR MD Jul 14, 2021 10:56
--- NOTE | 2021-07-14 10:56 | PDOC1 ---
History and Physical Date of Service: DOS: DATE: 07/14/21 TIME: 10:51 Chief Complaint: Chief Complain: Abdominal pain History of Present Illness: HPI: 45-year-old female with past medical history of asthma, hypertension, hypothyroidism who presents with right lower quadrant abdominal pain in the past 24 hours. No other endorsed symptoms. Denies any fevers, chest pain, diarrhea, dysuria, bloody stools or nausea vomiting. Past Medical/Surgical History: PMH/PSH: Past Medical History: Asthma, Hypertension, Hypothyroid Additional Past Medical Histor: SLEEP APNEA Past Surgical History: , Hysterectomy, Tubal ligation, Other Additional Past Surgical Histo: HERNIA Allergies: Allergies: Coded Allergies: Penicillins (Verified Allergy, Severe, swelling and hives, 07/14/21) Has tolerated rocephin latex (Verified Allergy, Unknown, 07/14/21) Family History: Family History: Reviewed with no relative findings in the chart Social History: Social History: Smoking Status: Never Smoker Alcohol Use: None Drug Use: None Current Medications: Current Medications Current Medications Iohexol (Omnipaque 300 Mg/ml) 60 ml 1X ONCE IV Last administered on 07/14/21at 08:09; Start 07/14/21 at 08:00; Stop 07/14/21 at 08:01; Status DC Info (CONTRAST GIVEN -- Rx MONITORING) 1 each PRN DAILY PRN MC SEE COMMENTS; Start 07/14/21 at 08:15; Stop 07/16/21 at 08:14 Cefoxitin Sodium (Mefoxin) 2 gm 1X ONCE IVP Last administered on 07/14/21at 09:01; Start 07/14/21 at 08:45; Stop 07/14/21 at 08:46; Status DC Morphine Sulfate (Morphine Sulfate) 4 mg PRN Q2HR PRN IVP PAIN Last administered on 07/14/21at 08:48; Start 07/14/21 at 08:30; Stop 07/15/21 at 08:29 Sodium Chloride 1,000 ml @ 100 mls/hr Q10H IV Last administered on 07/14/21at 08:46; Start 07/14/21 at 08:30; Stop 07/15/21 at 08:29 Ondansetron HCl (Zofran) 4 mg 1X ONCE IVP Last administered on 07/14/21at 08:47; Start 07/14/21 at 08:45; Stop 07/14/21 at 08:46; Status DC Potassium Chloride/Water 100 ml @ 100 mls/hr Q1H IV Last administered on 06/26 01/17at 09:04; Start 07/14/21 at 09:00; Stop 07/14/21 at 12:59 Bupivacaine HCl/ Epinephrine Bitart (Sensorcaine-Epi 0.25%-1:330808 Mpf) 30 ml STK-MED ONCE .ROUTE Last administered on 07/14/21at 10:05; Start 07/14/21 at 08:59; Stop 07/14/21 at 08:59; Status DC Fentanyl Citrate (Fentanyl 2ml Vial) 25 mcg PRN Q5MIN PRN IVP MILD PAIN 1-3; Start 07/14/21 at 09:15; Stop 07/15/21 at 09:14 Fentanyl Citrate (Fentanyl 2ml Vial) 50 mcg PRN Q5MIN PRN IVP MODERATE PAIN 4- 6; Start 07/14/21 at 09:15; Stop 07/15/21 at 09:14 Morphine Sulfate (Morphine Sulfate) 1 mg PRN Q10MIN PRN IVP SEVERE PAIN 7-10; Start 07/14/21 at 09:15; Stop 07/15/21 at 09:14 Ringer's Solution 1,000 ml @ 30 mls/hr Q24H IV ; Start 07/14/21 at 09:15; Stop 07/14/21 at 21:14 Hydromorphone HCl (Dilaudid) 0.5 mg PRN Q10MIN PRN IVP SEVERE PAIN 7-10, 2nd CHOICE; Start 07/14/21 at 09:15; Stop 07/15/21 at 09:14 Prochlorperazine Edisylate (Compazine) 5 mg PACU PRN PRN IVP NAUSEA, MRX1; Start 07/14/21 at 09:15; Stop 07/15/21 at 09:14 Rocuronium [place]imfield (Zemuron) 50 mg STK-MED ONCE .ROUTE ; Start 07/14/21 at 09:32; Stop 07/14/21 at 09:33; Status DC Fentanyl Citrate (Fentanyl 2ml Vial) 100 mcg STK-MED ONCE .ROUTE ; Start 07/14/21 at 09:33; Stop 07/14/21 at 09:33; Status DC Propofol (Diprivan) 200 mg STK-MED ONCE IV ; Start 07/14/21 at 09:33; Stop 07/14/21 at 09:33; Status DC Lidocaine HCl (Lidocaine Pf 2% Vial) 5 ml STK-MED ONCE .ROUTE ; Start 07/14/21 at 09:33; Stop 07/14/21 at 09:34; Status DC Dexamethasone Sodium Phosphate (Decadron) 4 mg STK-MED ONCE .ROUTE ; Start 07/14/21 at 09:33; Stop 07/14/21 at 09:34; Status DC Ondansetron HCl (Zofran) 4 mg STK-MED ONCE .ROUTE ; Start 07/14/21 at 09:33; Stop 07/14/21 at 09:34; Status DC Ketorolac Tromethamine (Toradol 30mg Vial) 30 mg STK-MED ONCE .ROUTE ; Start at 09:55; Stop 07/14/21 at 09:55; Status DC Cellulose (Surgicel Hemostat 4x8) 1 each STK-MED ONCE .ROUTE Last administered on 07/14/21at 10:05; Start 07/14/21 at 10:23; Stop 07/14/21 at 10:24; Status DC Neostigmine Brimfield (Neostigmine Methylsulfate) 5 mg STK-MED ONCE .ROUTE ; Start 07/14/21 at 10:36; Stop 07/14/21 at 10:36; Status DC Glycopyrrolate (Robinul) 1 mg STK-MED ONCE .ROUTE ; Start 07/14/21 at 10:37; Stop 07/14/21 at 10:37; Status DC Active Scripts Active Bactrim Ds Tablet (Sulfamethoxazole/Trimethoprim) 1 Each Tablet 1 Tab PO BID 7 Days Cyclobenzaprine Hcl 5 Mg Tablet 1 Tab PO TID Ibuprofen 600 Mg Tablet 600 Mg PO PRN Q6HRS PRN Mucinex (Guaifenesin) 1,200 Mg Tbmp.12hr 1 Tab PO BID Ondansetron Odt (Ondansetron) 4 Mg Tab.rapdis 1 Tab PO PRN Q6-8HRS PRN Potassium Chloride (Potassium Chloride) 20 Meq Tablet.er 20 Meq PO DAILY Reglan (Metoclopramide Hcl) 10 Mg Tablet 1 Tab PO TID Bactrim Ds Tablet (Sulfamethoxazole/Trimethoprim) 1 Each Tablet 1 Tab PO BID Reported K-Tab ER (Potassium Chloride) 20 Meq Tablet.er 20 Meq PO Propranolol Hcl 10 Mg Tablet 10 Mg PO Levothyroxine Sodium 125 Mcg Tablet 250 Mcg PO ROS: Review of Systems Review of System REVIEW OF SYSTEMS: GENERAL: Denies weakness SKIN: No bruising, hair changes or rashes. EYES: No blurred, double or loss of vision. NOSE AND THROAT: No history of nosebleeds, hoarseness or sore throat. HEART: No history of palpitations, chest pain or shortness of breath on exertion. LUNGS: Denies cough, hemoptysis, wheezing or shortness of breath. GASTROINTESTINAL: Positive for nausea vomiting abdominal pain GENITOURINARY: No history of frequency, urgency, hesitancy or nocturia. NEUROLOGIC: Denies history of numbness, tingling, or tremor. PSYCHIATRIC: No history of panic, anxiety or depression. ENDOCRINE: No history of heat or cold intolerance, polyuria or polydipsia. EXTREMITIES: Denies joint pain, pain on walking or stiffness. Physical Exam: Vital Signs: Vital Signs Date Time Temp Pulse Resp B/P (MAP) Pulse Ox O2 Delivery O2 Flow Rate FiO2 07/14/21 09:35 98.1 76 20 116/68 99 Room Air 98.1 Physcial Exam: General: Well developed, well nourished, no acute distress, well appearing HEENT: Pupils equally round and reactive to light, EOMI, no discharge, normal conjunctiva Neck: Supple, no nuchal rigidity, no JVD, trachea midline, no tenderness Cardiac: RRR, no murmurs, no gallops, no rubs Chest/Lungs: CTAB, no wheeze, no rhonchi, no crackles Abdomen: soft, non-distended, no guarding, no peritoneal signs, tender to palpation in the right lower quadrant Back: No tenderness Extremities: no edema, pulses intact, non-tender,capillary refill <3 sec bilateral upper and lower extremities, Neuro: Alert and oriented x 4, no focal deficits, normal speech Labs: Labs: Laboratory Tests Test 07/14/21 06:35 07/14/21 07:10 07/14/21 08:45 White Blood Count 12.1 x10^3/uL (4.0-11.0) Red Blood Count 4.47 x10^6/uL (3.50-5.40) Hemoglobin 11.7 g/dL (12.0-15.5) Hematocrit 35.7 % (36.0-47.0) Mean Corpuscular Volume 80 fL (79-100) Mean Corpuscular Hemoglobin 26 pg (25-35) Mean Corpuscular Hemoglobin Concent 33 g/dL (31-37) Red Cell Distribution Width 14.4 % (11.5-14.5) Platelet Count 224 x10^3/uL (140-400) Neutrophils (%) (Auto) 80 % (31-73) Lymphocytes (%) (Auto) 12 % (24-48) Monocytes (%) (Auto) 7 % (0-9) Eosinophils (%) (Auto) 1 % (0-3) Basophils (%) (Auto) 0 % (0-3) Neutrophils # (Auto) 9.6 x10^3/uL (1.8-7.7) Lymphocytes # (Auto) 1.5 x10^3/uL (1.0-4.8) Monocytes # (Auto) 0.9 x10^3/uL (0.0-1.1) Eosinophils # (Auto) 0.1 x10^3/uL (0.0-0.7) Basophils # (Auto) 0.0 x10^3/uL (0.0-0.2) Sodium Level 138 mmol/L (136-145) Potassium Level 2.9 mmol/L (3.5-5.1) Chloride Level 96 mmol/L (98-107) Carbon Dioxide Level 31 mmol/L (21-32) Anion Gap 11 (6-14) Blood Urea Nitrogen 14 mg/dL (7-20) Creatinine 1.4 mg/dL (0.6-1.0) Estimated GFR (Cockcroft-Gault) 49.0 Glucose Level 175 mg/dL (70-99) Calcium Level 9.7 mg/dL (8.5-10.1) Total Bilirubin 0.4 mg/dL (0.2-1.0) Direct Bilirubin 0.1 mg/dL (0.0-0.2) Aspartate Amino Transf (AST/SGOT) 24 U/L (15-37) Alanine Aminotransferase (ALT/SGPT) 44 U/L (14-59) Alkaline Phosphatase 146 U/L (46-116) Total Protein 10.0 g/dL (6.4-8.2) Albumin 3.9 g/dL (3.4-5.0) Lipase 28 U/L (73-393) Serum Test, Qualitative Negative (NEG) SARS-CoV-2 Antigen (Rapid) Negative (NEGATIVE) Laboratory Tests Test 07/14/21 06:35 07/14/21 07:10 07/14/21 08:45 White Blood Count 12.1 x10^3/uL (4.0-11.0) Red Blood Count 4.47 x10^6/uL (3.50-5.40) Hemoglobin 11.7 g/dL (12.0-15.5) Hematocrit 35.7 % (36.0-47.0) Mean Corpuscular Volume 80 fL (79-100) Mean Corpuscular Hemoglobin 26 pg (25-35) Mean Corpuscular Hemoglobin Concent 33 g/dL (31-37) Red Cell Distribution Width 14.4 % (11.5-14.5) Platelet Count 224 x10^3/uL (140-400) Neutrophils (%) (Auto) 80 % (31-73) Lymphocytes (%) (Auto) 12 % (24-48) Monocytes (%) (Auto) 7 % (0-9) Eosinophils (%) (Auto) 1 % (0-3) Basophils (%) (Auto) 0 % (0-3) Neutrophils # (Auto) 9.6 x10^3/uL (1.8-7.7) Lymphocytes # (Auto) 1.5 x10^3/uL (1.0-4.8) Monocytes # (Auto) 0.9 x10^3/uL (0.0-1.1) Eosinophils # (Auto) 0.1 x10^3/uL (0.0-0.7) Basophils # (Auto) 0.0 x10^3/uL (0.0-0.2) Sodium Level 138 mmol/L (136-145) Potassium Level 2.9 mmol/L (3.5-5.1) Chloride Level 96 mmol/L (98-107) Carbon Dioxide Level 31 mmol/L (21-32) Anion Gap 11 (6-14) Blood Urea Nitrogen 14 mg/dL (7-20) Creatinine 1.4 mg/dL (0.6-1.0) Estimated GFR (Cockcroft-Gault) 49.0 Glucose Level 175 mg/dL (70-99) Calcium Level 9.7 mg/dL (8.5-10.1) Total Bilirubin 0.4 mg/dL (0.2-1.0) Direct Bilirubin 0.1 mg/dL (0.0-0.2) Aspartate Amino Transf (AST/SGOT) 24 U/L (15-37) Alanine Aminotransferase (ALT/SGPT) 44 U/L (14-59) Alkaline Phosphatase 146 U/L (46-116) Total Protein 10.0 g/dL (6.4-8.2) Albumin 3.9 g/dL (3.4-5.0) Lipase 28 U/L (73-393) Serum Test, Qualitative Negative (NEG) SARS-CoV-2 Antigen (Rapid) Negative (NEGATIVE) Images: Images PROCEDURE: CT ABD PELV W/ IV CONTRST ONLY CT abdomen pelvis with contrast. HISTORY: Abdominal pain CT abdomen pelvis was done using 60 mL Omnipaque 300 contrast. Comparison is made with a study from May 29. There is mild atelectasis in the lung bases without other infiltrates. There is no pleural effusion. There are hepatic cysts without change from the old study. Spleen is normal. Adrenal glands are normal. Pancreas is unremarkable. There is a calculus in the lower pole of the right kidney without change. There are phleboliths in the pelvis. The appendix is enlarged with periappendiceal inflammation consistent with an acute appen dicitis. The appendix is retrocecal in location. There is no free air. Free fluid in the pelvis. Uterus and ovaries are unremarkable. There is no bowel obstruction. IMPRESSION: 1. Acute appendicitis. 2. Punctate calculus right kidney Assessment/Plan Assessment/Plan Acute abdominal pain secondary to acute appendicitis Severe hypokalemia RUPERTO due to vasomotor nephropathy Hyperglycemia without a reported history of diabetes Elevated alkaline phosphatase Morbid obesity History of asthma History of hypothyroidism History of hypertension Admit to hospitalist service for further management Continue empiric IV antibiotics Keep n.p.o. General surgery consult for laparoscopic appendectomy possible open Lovenox for DVT prophylaxis NPO CODE STATUS full Discussed with RN and SW Disposition on-call to the OR DPOA: Mother Justifications for Admission Other Justification TRI SCHROEDER MD Jul 14, 2021 10:55
[2021-07-14] MEDS ORDERED: diphenhydrAMINE HCL 25 MG CAPSULE PO PRN ×2 (11:00)
[2021-07-14] MEDS ORDERED: ONDANSETRON PF 4 MG/2 ML VIAL. IVP PRN (11:00)
[2021-07-14] MEDS ORDERED: MORPHINE SULFATE 2 MG/ML INJ. IV PRN (11:00)
[2021-07-14] MEDS ORDERED: ZOLPIDEM 5 MG TABLET. PO PRN (11:00)
[2021-07-14] MEDS ORDERED: oxyCODONE/APAP 5/325 1 TAB TABLET PO PRN ×2 (11:00)
[2021-07-14] MEDS ORDERED: MORPHINE SULFATE 2 MG/ML INJ. IVP PRN (11:00)
[2021-07-14] MEDS ORDERED: DEXTROSE 50% 25 GM / 50ML DISP.SYRIN. IV PRN (11:00)
[2021-07-14] MEDS ORDERED: PROCHLORPERAZINE 10 MG/2 ML VIAL. IV PRN (11:00)
[2021-07-14] MEDS ORDERED: ACETAMINOPHEN 325 MG TABLET. PO PRN (11:00)
[2021-07-14] MEDS ORDERED: LORazepam 0.5 MG TABLET PO PRN (11:00)
[2021-07-14] MEDS ORDERED: SEVOFLURANE 61 TO 120 MINUTES. IH ONE (11:13)
[2021-07-14] MEDS ORDERED: MORPHINE SULFATE 2 MG/ML INJ. ONE (11:35)
[2021-07-14] MEDS: MORPHINE SULFATE 2 MG/ML INJ. IVP PRN ×2 (11:39→12:00)
[2021-07-14] MEDS: IV NORMAL SALINE 1000ML BAG 1,000 ML IV SCH ×2 (12:35→21:00)
[2021-07-14] MEDS ORDERED: CYCL10TA19 PO (13:06)
[2021-07-14] MEDS ORDERED: OMEP40CA7 PO (13:06)
[2021-07-14] MEDS ORDERED: MELO7.5T29 PO (13:06)
[2021-07-14] MEDS ORDERED: VARE1TAB23 PO (13:06)
[2021-07-14] MEDS ORDERED: CETI10TA16 PO (13:06)
[2021-07-14] MEDS ORDERED: CHLO25TA2 PO (13:06)
[2021-07-14] MEDS ORDERED: LEVO25TA4 PO (13:06)
[2021-07-14] MEDS ORDERED: PROP80TA PO (13:06)
[2021-07-14] MEDS ORDERED: ALBU8HFA IN (13:06)
[2021-07-14] MEDS: KETOROLAC 15 MG/ML VIAL. IVP SCH ×2 (14:46→17:57)
[2021-07-14] MEDS: DOCUSATE SODIUM 100 MG CAPSULE. PO PRN (20:21)
[2021-07-14] MEDS: oxyCODONE/APAP 5/325 1 TAB TABLET PO PRN (20:21)
[2021-07-14] MEDS: ENOXAPARIN 40 MG/0.4 ML SYRINGE. SQ SCH (20:29)
[2021-07-15] MEDS: diphenhydrAMINE 50 MG/ML VIAL IVP PRN (00:17)
[2021-07-15] MEDS: KETOROLAC 15 MG/ML VIAL. IVP SCH ×4 (00:18→17:40)
[2021-07-15 02:34] VITALS: BP 102/54
[2021-07-15 07:00] VITALS: BP 97/49
[2021-07-15 07:23] LABS: BASO % 0 % (0-3); EOS % 0 % (0-3); HEMATOCRIT 28.6 % (36.0-47.0); HEMOGLOBIN 9.4 g/dL (12.0-15.5); LYMPH # 2.2 x10^3/uL (1.0-4.8); LYMPH % 22 % (24-48); MEAN CORPUSCULAR HEMOGLOBIN 27 pg (25-35); MEAN CORPUSCULAR HGB CONC 33 g/dL (31-37); MEAN CORPUSCULAR VOLUME 81 fL (79-100); MONO # 0.6 x10^3/uL (0.0-1.1); MONO % 7 % (0-9); NEUT % 71 % (31-73); PLATELET COUNT 194 x10^3/uL (140-400); RED BLOOD COUNT 3.54 x10^6/uL (3.50-5.40); RED CELL DISTRIBUTION WIDTH 14.6 % (11.5-14.5); WHITE BLOOD COUNT 9.8 x10^3/uL (4.0-11.0)
[2021-07-15 07:44] LABS: CALCIUM 7.7 mg/dL (8.5-10.1); CREATININE 1.6 mg/dL (0.6-1.0); MAGNESIUM 2.2 mg/dL (1.8-2.4); PHOSPHORUS 3.2 mg/dL (2.6-4.7); POTASSIUM 3.5 mmol/L (3.5-5.1)
[2021-07-15] MEDS: SENNOSIDES 8.6 MG TABLET PO PRN ×2 (08:12→20:49)
[2021-07-15] MEDS: DOCUSATE SODIUM 100 MG CAPSULE. PO PRN (08:12)
--- NOTE | 2021-07-15 09:19 | PDOC ---
SURGICAL PROGRESS NOTE DATE: 07/15/21 TIME: 09:18 Subjective Patient doing well does describe some pain at the incision site Vital Signs Vital Signs Date Time Temp Pulse Resp B/P (MAP) Pulse Ox O2 Delivery O2 Flow Rate FiO2 07/15/21 08:15 Room Air 07/15/21 07:00 97.7 86 18 97/49 (65) 99 97.7 07/14/21 20:51 10.0 I&O Intake and Output 07/15/21 07:00 Intake Total 2140 ml Output Total 15 ml Balance 2125 ml Intake Oral 240 ml IV Total 1900 ml Output Estimated Blood Loss 15 ml # Voids 2 PATIENT HAS A BLISS: No General: Alert, Oriented X3, Cooperative, mild distress Abdomen: Normal bowel sounds, Soft, Other (Mild incisional tenderness wounds clean dry and intact) Labs Laboratory Tests Test 07/14/21 06:35 07/14/21 07:10 07/14/21 08:45 07/15/21 05:50 White Blood Count 12.1 x10^3/uL (4.0-11.0) 9.8 x10^3/uL (4.0-11.0) Red Blood Count 4.47 x10^6/uL (3.50-5.40) 3.54 x10^6/uL (3.50-5.40) Hemoglobin 11.7 g/dL (12.0-15.5) 9.4 g/dL (12.0-15.5) Hematocrit 35.7 % (36.0-47.0) 28.6 % (36.0-47.0) Mean Corpuscular Volume 80 fL (79-100) 81 fL (79-100) Mean Corpuscular Hemoglobin 26 pg (25-35) 27 pg (25-35) Mean Corpuscular Hemoglobin Concent 33 g/dL (31-37) 33 g/dL (31-37) Red Cell Distribution Width 14.4 % (11.5-14.5) 14.6 % (11.5-14.5) Platelet Count 224 x10^3/uL (140-400) 194 x10^3/uL (140-400) Neutrophils (%) (Auto) 80 % (31-73) 71 % (31-73) Lymphocytes (%) (Auto) 12 % (24-48) 22 % (24-48) Monocytes (%) (Auto) 7 % (0-9) 7 % (0-9) Eosinophils (%) (Auto) 1 % (0-3) 0 % (0-3) Basophils (%) (Auto) 0 % (0-3) 0 % (0-3) Neutrophils # (Auto) 9.6 x10^3/uL (1.8-7.7) 7.0 x10^3/uL (1.8-7.7) Lymphocytes # (Auto) 1.5 x10^3/uL (1.0-4.8) 2.2 x10^3/uL (1.0-4.8) Monocytes # (Auto) 0.9 x10^3/uL (0.0-1.1) 0.6 x10^3/uL (0.0-1.1) Eosinophils # (Auto) 0.1 x10^3/uL (0.0-0.7) 0.0 x10^3/uL (0.0-0.7) Basophils # (Auto) 0.0 x10^3/uL (0.0-0.2) 0.0 x10^3/uL (0.0-0.2) Sodium Level 138 mmol/L (136-145) 139 mmol/L (136-145) Potassium Level 2.9 mmol/L (3.5-5.1) 3.5 mmol/L (3.5-5.1) Chloride Level 96 mmol/L (98-107) 102 mmol/L (98-107) Carbon Dioxide Level 31 mmol/L (21-32) 28 mmol/L (21-32) Anion Gap 11 (6-14) 9 (6-14) Blood Urea Nitrogen 14 mg/dL (7-20) 12 mg/dL (7-20) Creatinine 1.4 mg/dL (0.6-1.0) 1.6 mg/dL (0.6-1.0) Estimated GFR (Cockcroft-Gault) 49.0 42.0 Glucose Level 175 mg/dL (70-99) 143 mg/dL (70-99) Calcium Level 9.7 mg/dL (8.5-10.1) 7.7 mg/dL (8.5-10.1) Total Bilirubin 0.4 mg/dL (0.2-1.0) Direct Bilirubin 0.1 mg/dL (0.0-0.2) Aspartate Amino Transf (AST/SGOT) 24 U/L (15-37) Alanine Aminotransferase (ALT/SGPT) 44 U/L (14-59) Alkaline Phosphatase 146 U/L (46-116) Total Protein 10.0 g/dL (6.4-8.2) Albumin 3.9 g/dL (3.4-5.0) Lipase 28 U/L (73-393) Serum Test, Qualitative Negative (NEG) SARS-CoV-2 Antigen (Rapid) Negative (NEGATIVE) Phosphorus Level 3.2 mg/dL (2.6-4.7) Magnesium Level 2.2 mg/dL (1.8-2.4) Laboratory Tests Test 07/15/21 05:50 White Blood Count 9.8 x10^3/uL (4.0-11.0) Red Blood Count 3.54 x10^6/uL (3.50-5.40) Hemoglobin 9.4 g/dL (12.0-15.5) Hematocrit 28.6 % (36.0-47.0) Mean Corpuscular Volume 81 fL (79-100) Mean Corpuscular Hemoglobin 27 pg (25-35) Mean Corpuscular Hemoglobin Concent 33 g/dL (31-37) Red Cell Distribution Width 14.6 % (11.5-14.5) Platelet Count 194 x10^3/uL (140-400) Neutrophils (%) (Auto) 71 % (31-73) Lymphocytes (%) (Auto) 22 % (24-48) Monocytes (%) (Auto) 7 % (0-9) Eosinophils (%) (Auto) 0 % (0-3) Basophils (%) (Auto) 0 % (0-3) Neutrophils # (Auto) 7.0 x10^3/uL (1.8-7.7) Lymphocytes # (Auto) 2.2 x10^3/uL (1.0-4.8) Monocytes # (Auto) 0.6 x10^3/uL (0.0-1.1) Eosinophils # (Auto) 0.0 x10^3/uL (0.0-0.7) Basophils # (Auto) 0.0 x10^3/uL (0.0-0.2) Sodium Level 139 mmol/L (136-145) Potassium Level 3.5 mmol/L (3.5-5.1) Chloride Level 102 mmol/L (98-107) Carbon Dioxide Level 28 mmol/L (21-32) Anion Gap 9 (6-14) Blood Urea Nitrogen 12 mg/dL (7-20) Creatinine 1.6 mg/dL (0.6-1.0) Estimated GFR (Cockcroft-Gault) 42.0 Glucose Level 143 mg/dL (70-99) Calcium Level 7.7 mg/dL (8.5-10.1) Phosphorus Level 3.2 mg/dL (2.6-4.7) Magnesium Level 2.2 mg/dL (1.8-2.4) Problem List Problems Medical Problems: (1) Acute appendicitis Status: Acute (2) Hypokalemia Status: Acute (3) Renal insufficiency Status: Acute Assessment/Plan Status post laparoscopic appendectomy White count normal this morning afebrile. Stable from surgical standpoint could be discharged Follow-up Dr. Marr in 2 weeks Justicifation of Admission Dx: Justifications for Admission: Justification of Admission Dx: N/A KIMANI MARR MD Jul 15, 2021 09:19
[2021-07-15] MEDS: ENOXAPARIN 40 MG/0.4 ML SYRINGE. SQ SCH ×2 (09:21→20:51)
[2021-07-15] MEDS: IV 1/2 NORMAL SALINE 1,000 ML IV SCH ×3 (09:22→18:15)
[2021-07-15 11:00] VITALS: BP 95/54
[2021-07-15 15:00] VITALS: BP 106/67
[2021-07-15 15:40] LABS: CALCIUM 7.4 mg/dL (8.5-10.1); CREATININE 1.5 mg/dL (0.6-1.0); GFR 45.2; POTASSIUM 3.4 mmol/L (3.5-5.1)
--- NOTE | 2021-07-15 16:44 | PDOC ---
[facility] [employer] PROGRESS NOTE Date of Service DOS: DATE: 07/15/21 TIME: 16:41 Chief Complaint Chief Complaint Assessment/Plan Acute abdominal pain secondary to acute appendicitis Severe hypokalemia RUPERTO due to vasomotor nephropathy Hyperglycemia without a reported history of diabetes Elevated alkaline phosphatase Morbid obesity History of asthma History of hypothyroidism History of hypertension Admit to hospitalist service for further management Continue empiric IV antibiotics Keep n.p.o. General surgery consult for laparoscopic appendectomy possible open Lovenox for DVT prophylaxis NPO CODE STATUS full Discussed with RN and SW Disposition on-call to the OR DPOA: Mother History of Present Illness History of Present Illness 45-year-old female with past medical history of asthma, hypertension, hypothyroidism who presents with right lower quadrant abdominal pain in the past 24 hours. No other endorsed symptoms. Denies any fevers, chest pain, diarrhea, dysuria, bloody stools or nausea vomiting. 07/15/21 No acute events overnight. Tolerating diet and having appropriate incisional abdominal pain. Repeat Cr elevated at 1.5, baseline at 1.0. Will continue to trend Cr. Continue with IVF. Plan for discharge in the morning. Vitals/I&O Vitals/I&O: Vital Signs Date Time Temp Pulse Resp B/P (MAP) Pulse Ox O2 Delivery O2 Flow Rate FiO2 07/15/21 15:00 97.4 103 18 106/67 (80) 97 97.4 07/15/21 14:48 Room Air 07/14/21 20:51 10.0 I & O 07/14/21 07/14/21 07/15/21 15:00 23:00 07:00 Intake Total 1700 ml 200 ml 240 ml Output Total 15 ml Balance 1685 ml 200 ml 240 ml Physical Exam General: Alert, Oriented X3, Cooperative, mild distress Heart: Regular rate, No murmurs Abdomen: Normal bowel sounds, Soft, Other (Mild incisional tenderness wounds clean dry and intact) Extremities: No edema Skin: No significant lesion Labs Labs: Laboratory Tests Test 07/15/21 05:50 07/15/21 15:05 White Blood Count 9.8 x10^3/uL (4.0-11.0) Red Blood Count 3.54 x10^6/uL (3.50-5.40) Hemoglobin 9.4 g/dL (12.0-15.5) Hematocrit 28.6 % (36.0-47.0) Mean Corpuscular Volume 81 fL (79-100) Mean Corpuscular Hemoglobin 27 pg (25-35) Mean Corpuscular Hemoglobin Concent 33 g/dL (31-37) Red Cell Distribution Width 14.6 % (11.5-14.5) Platelet Count 194 x10^3/uL (140-400) Neutrophils (%) (Auto) 71 % (31-73) Lymphocytes (%) (Auto) 22 % (24-48) Monocytes (%) (Auto) 7 % (0-9) Eosinophils (%) (Auto) 0 % (0-3) Basophils (%) (Auto) 0 % (0-3) Neutrophils # (Auto) 7.0 x10^3/uL (1.8-7.7) Lymphocytes # (Auto) 2.2 x10^3/uL (1.0-4.8) Monocytes # (Auto) 0.6 x10^3/uL (0.0-1.1) Eosinophils # (Auto) 0.0 x10^3/uL (0.0-0.7) Basophils # (Auto) 0.0 x10^3/uL (0.0-0.2) Sodium Level 139 mmol/L (136-145) 137 mmol/L (136-145) Potassium Level 3.5 mmol/L (3.5-5.1) 3.4 mmol/L (3.5-5.1) Chloride Level 102 mmol/L (98-107) 101 mmol/L (98-107) Carbon Dioxide Level 28 mmol/L (21-32) 28 mmol/L (21-32) Anion Gap 9 (6-14) 8 (6-14) Blood Urea Nitrogen 12 mg/dL (7-20) 12 mg/dL (7-20) Creatinine 1.6 mg/dL (0.6-1.0) 1.5 mg/dL (0.6-1.0) Estimated GFR (Cockcroft-Gault) 42.0 45.2 Glucose Level 143 mg/dL (70-99) 148 mg/dL (70-99) Calcium Level 7.7 mg/dL (8.5-10.1) 7.4 mg/dL (8.5-10.1) Phosphorus Level 3.2 mg/dL (2.6-4.7) Magnesium Level 2.2 mg/dL (1.8-2.4) 2.0 mg/dL (1.8-2.4) Assessment and Plan Assessmemt and Plan Problems Medical Problems: (1) Acute appendicitis Status: Acute (2) Hypokalemia Status: Acute (3) Renal insufficiency Status: Acute Comment Review of Relevant I have reviewed the following items kush (where applicable) has been applied. Medications: Current Medications Medications (Trade) Dose Ordered Sig/Todd Route PRN Reason Start Time Stop Time Status Last Admin Dose Admin Levofloxacin (Levaquin) 500 mg DAILY06 PO 07/15/21 06:00 07/15/21 06:22 Enoxaparin Sodium (Lovenox 40mg Syringe) 40 mg BID SQ 07/14/21 21:00 07/15/21 09:21 Sodium Chloride 1,000 ml @ 200 mls/hr Q5H IV 07/15/21 08:15 07/15/21 14:49 Justifications for Admission Other Justification Acute appendicitis TRI SCHROEDER MD Jul 15, 2021 16:43
[2021-07-15] MEDS ORDERED: POTASSIUM CHLORIDE 20 MEQ TABLET.ER. PO ONE (16:45)
[2021-07-15] MEDS: oxyCODONE/APAP 5/325 1 TAB TABLET PO PRN (18:45)
[2021-07-15 19:00] VITALS: BP 94/56
[2021-07-15] MEDS: IV NORMAL SALINE 1000ML BAG 1,000 ML IV SCH (20:51)
[2021-07-15] MEDS: metroNIDAZOLE 500 MG TABLET PO SCH (20:57)
[2021-07-15 23:00] VITALS: BP 94/60
[2021-07-16] MEDS: IV NORMAL SALINE 1000ML BAG 1,000 ML IV SCH ×2 (00:55→07:35)
[2021-07-16 03:00] VITALS: BP 112/81
[2021-07-16] MEDS: KETOROLAC 15 MG/ML VIAL. IVP SCH ×3 (04:30→11:26)
[2021-07-16] MEDS: diphenhydrAMINE 50 MG/ML VIAL IVP PRN (04:32)
[2021-07-16 05:22] LABS: BASO % 0 % (0-3); EOS # 0.2 x10^3/uL (0.0-0.7); EOS % 3 % (0-3); HEMATOCRIT 28.1 % (36.0-47.0); HEMOGLOBIN 9.2 g/dL (12.0-15.5); LYMPH # 3.1 x10^3/uL (1.0-4.8); LYMPH % 47 % (24-48); MEAN CORPUSCULAR HEMOGLOBIN 27 pg (25-35); MEAN CORPUSCULAR HGB CONC 33 g/dL (31-37); MEAN CORPUSCULAR VOLUME 81 fL (79-100); MONO # 0.5 x10^3/uL (0.0-1.1); MONO % 7 % (0-9); NEUT # 2.8 x10^3/uL (1.8-7.7); NEUT % 43 % (31-73); PLATELET COUNT 183 x10^3/uL (140-400); RED BLOOD COUNT 3.47 x10^6/uL (3.50-5.40); RED CELL DISTRIBUTION WIDTH 14.9 % (11.5-14.5); WHITE BLOOD COUNT 6.6 x10^3/uL (4.0-11.0)
[2021-07-16 05:58] LABS: CALCIUM 7.5 mg/dL (8.5-10.1); CREATININE 1.3 mg/dL (0.6-1.0); GFR 53.4; MAGNESIUM 2.2 mg/dL (1.8-2.4); POTASSIUM 3.8 mmol/L (3.5-5.1)
[2021-07-16 07:00] VITALS: BP 103/69
[2021-07-16] MEDS ORDERED: OXYC1TAB15 PO (08:33)
--- NOTE | 2021-07-16 08:37 | DISCH ---
DISCHARGE INSTRUCTIONS Condition on Discharge Condition on Discharge: Stable Activity After Discharge Activity Instructions for Disc: Activity as tolerated Lifting Instructions after Dis: Do not lift >10 pounds Exercise Instruction after Dis: Walk 30 min, 5 x per week Driving Instructions after Dis: Do not drive today Weight Bearing Status after Di: Full weight bearing Diet after Discharge Diet after Discharge: Cardiac Follow-Up Follow up with: PCP within 2 weeks of discharge Follow Up With: General surgery within 2 weeks for postoperative check TRI SCHROEDER MD Jul 16, 2021 08:37
[2021-07-16] MEDS: ENOXAPARIN 40 MG/0.4 ML SYRINGE. SQ SCH (09:15)
[2021-07-16] MEDS: metroNIDAZOLE 500 MG TABLET PO SCH (09:15)
[2021-07-16] MEDS: SENNOSIDES 8.6 MG TABLET PO PRN (09:15)
[2021-07-16] MEDS: DOCUSATE SODIUM 100 MG CAPSULE. PO PRN (09:15)
[2021-07-16] MEDS: oxyCODONE/APAP 5/325 1 TAB TABLET PO PRN (09:16)
--- NOTE | 2021-07-16 09:33 | PDOC ---
JAMAR NASH VETERINARY PRACTITIONER 07/16/21 0933: SURGICAL PROGRESS NOTE DATE: 07/16/21 TIME: 09:32 Subjective some pain no nausea pain so did not eat breakfast Vital Signs Vital Signs Date Time Temp Pulse Resp B/P (MAP) Pulse Ox O2 Delivery O2 Flow Rate FiO2 07/16/21 09:16 Room Air 07/16/21 07:00 98.1 94 18 103/69 (80) 99 2.0 98.1 I&O Intake and Output 07/16/21 07:00 Intake Total 600 ml Balance 600 ml Intake Oral 500 ml IV Total 100 ml # Voids 1 General: Alert, Oriented X3, Cooperative Abdomen: Soft, Other (ND, ttp lap sites ) Labs Laboratory Tests Test 07/15/21 05:50 07/15/21 15:05 07/16/21 04:05 White Blood Count 9.8 x10^3/uL (4.0-11.0) 6.6 x10^3/uL (4.0-11.0) Red Blood Count 3.54 x10^6/uL (3.50-5.40) 3.47 x10^6/uL (3.50-5.40) Hemoglobin 9.4 g/dL (12.0-15.5) 9.2 g/dL (12.0-15.5) Hematocrit 28.6 % (36.0-47.0) 28.1 % (36.0-47.0) Mean Corpuscular Volume 81 fL (79-100) 81 fL (79-100) Mean Corpuscular Hemoglobin 27 pg (25-35) 27 pg (25-35) Mean Corpuscular Hemoglobin Concent 33 g/dL (31-37) 33 g/dL (31-37) Red Cell Distribution Width 14.6 % (11.5-14.5) 14.9 % (11.5-14.5) Platelet Count 194 x10^3/uL (140-400) 183 x10^3/uL (140-400) Neutrophils (%) (Auto) 71 % (31-73) 43 % (31-73) Lymphocytes (%) (Auto) 22 % (24-48) 47 % (24-48) Monocytes (%) (Auto) 7 % (0-9) 7 % (0-9) Eosinophils (%) (Auto) 0 % (0-3) 3 % (0-3) Basophils (%) (Auto) 0 % (0-3) 0 % (0-3) Neutrophils # (Auto) 7.0 x10^3/uL (1.8-7.7) 2.8 x10^3/uL (1.8-7.7) Lymphocytes # (Auto) 2.2 x10^3/uL (1.0-4.8) 3.1 x10^3/uL (1.0-4.8) Monocytes # (Auto) 0.6 x10^3/uL (0.0-1.1) 0.5 x10^3/uL (0.0-1.1) Eosinophils # (Auto) 0.0 x10^3/uL (0.0-0.7) 0.2 x10^3/uL (0.0-0.7) Basophils # (Auto) 0.0 x10^3/uL (0.0-0.2) 0.0 x10^3/uL (0.0-0.2) Sodium Level 139 mmol/L (136-145) 137 mmol/L (136-145) 140 mmol/L (136-145) Potassium Level 3.5 mmol/L (3.5-5.1) 3.4 mmol/L (3.5-5.1) 3.8 mmol/L (3.5-5.1) Chloride Level 102 mmol/L (98-107) 101 mmol/L (98-107) 105 mmol/L (98-107) Carbon Dioxide Level 28 mmol/L (21-32) 28 mmol/L (21-32) 27 mmol/L (21-32) Anion Gap 9 (6-14) 8 (6-14) 8 (6-14) Blood Urea Nitrogen 12 mg/dL (7-20) 12 mg/dL (7-20) 9 mg/dL (7-20) Creatinine 1.6 mg/dL (0.6-1.0) 1.5 mg/dL (0.6-1.0) 1.3 mg/dL (0.6-1.0) Estimated GFR (Cockcroft-Gault) 42.0 45.2 53.4 Glucose Level 143 mg/dL (70-99) 148 mg/dL (70-99) 133 mg/dL (70-99) Calcium Level 7.7 mg/dL (8.5-10.1) 7.4 mg/dL (8.5-10.1) 7.5 mg/dL (8.5-10.1) Phosphorus Level 3.2 mg/dL (2.6-4.7) Magnesium Level 2.2 mg/dL (1.8-2.4) 2.0 mg/dL (1.8-2.4) 2.2 mg/dL (1.8-2.4) Laboratory Tests Test 07/15/21 15:05 07/16/21 04:05 Sodium Level 137 mmol/L (136-145) 140 mmol/L (136-145) Potassium Level 3.4 mmol/L (3.5-5.1) 3.8 mmol/L (3.5-5.1) Chloride Level 101 mmol/L (98-107) 105 mmol/L (98-107) Carbon Dioxide Level 28 mmol/L (21-32) 27 mmol/L (21-32) Anion Gap 8 (6-14) 8 (6-14) Blood Urea Nitrogen 12 mg/dL (7-20) 9 mg/dL (7-20) Creatinine 1.5 mg/dL (0.6-1.0) 1.3 mg/dL (0.6-1.0) Estimated GFR (Cockcroft-Gault) 45.2 53.4 Glucose Level 148 mg/dL (70-99) 133 mg/dL (70-99) Calcium Level 7.4 mg/dL (8.5-10.1) 7.5 mg/dL (8.5-10.1) Magnesium Level 2.0 mg/dL (1.8-2.4) 2.2 mg/dL (1.8-2.4) White Blood Count 6.6 x10^3/uL (4.0-11.0) Red Blood Count 3.47 x10^6/uL (3.50-5.40) Hemoglobin 9.2 g/dL (12.0-15.5) Hematocrit 28.1 % (36.0-47.0) Mean Corpuscular Volume 81 fL (79-100) Mean Corpuscular Hemoglobin 27 pg (25-35) Mean Corpuscular Hemoglobin Concent 33 g/dL (31-37) Red Cell Distribution Width 14.9 % (11.5-14.5) Platelet Count 183 x10^3/uL (140-400) Neutrophils (%) (Auto) 43 % (31-73) Lymphocytes (%) (Auto) 47 % (24-48) Monocytes (%) (Auto) 7 % (0-9) Eosinophils (%) (Auto) 3 % (0-3) Basophils (%) (Auto) 0 % (0-3) Neutrophils # (Auto) 2.8 x10^3/uL (1.8-7.7) Lymphocytes # (Auto) 3.1 x10^3/uL (1.0-4.8) Monocytes # (Auto) 0.5 x10^3/uL (0.0-1.1) Eosinophils # (Auto) 0.2 x10^3/uL (0.0-0.7) Basophils # (Auto) 0.0 x10^3/uL (0.0-0.2) Problem List Problems Medical Problems: (1) Acute appendicitis Status: Acute (2) Hypokalemia Status: Acute (3) Renal insufficiency Status: Acute Assessment/Plan s/p appy can dc from surgical POV Justicifation of Admission Dx: Justifications for Admission: Justification of Admission Dx: N/A KIMANI MARR MD 07/16/21 1028: SURGICAL PROGRESS NOTE Assessment/Plan Agree with Oscar's assessment plan JAMAR NASH APRN Jul 16, 2021 09:33 KIMANI MARR MD Jul 16, 2021 10:28
--- NOTE | 2021-07-16 09:51 | NUR ---
SW following. Discussed with RN, pt from home. Discharge order for home with self care. RN advised no SW needs.
[2021-07-16 10:31] VITALS: BP 93/56
--- NOTE | 2021-07-16 12:40 | NUR ---
Discharge Note: [facility] Discharge instructions and discharge home medications reviewed with Patient and a copy given. All questions have been answered and understanding verbalized. The following instructions and handouts were given: discharge instructions, new prescription, education and follow up recommendations. Discontinued lines and drains: Peripheral IV discontinued intact. Patient discharged to Home or Self Care with [facility] Transport Personnel via Wheelchair
--- NOTE | 2021-07-17 15:08 | PATHOLOGY ---
[facility] Accession Number: [id number] . 01 Material submitted: . appendix - APPENDIX . 01 Clinical history: . LAPAROSCOPIC APPENDECTOMY . 02 Diagnosis: Appendix, laparoscopic appendectomy: - Acute appendicitis with serosal exudate. ([facility]; 07/17/2021) S 07/17/2021 1315 Local . 02 Comment: There is no evidence of rupture. ([facility]; 07/17/2021) . 02 Electronically signed: . Juan C Haney MD, Pathologist NPI- [id number] . 01 Gross description: . Fixative: Formalin Labeled: Appendix Appendix length: 8.3 cm Appendix diameter: 0.8 cm Mesoappendix: 1.5 cm Proximal margin: Stapled Serosa: Evans-andrews to yellow-andrews and roughened with a moderate amount of fibrinous exudate Cut surface: Patent to dilated Luminal diameter: Up to 0.6 cm Perforation: None identified Lesions/abnormalities: Appendix is curved and adhesed to itself . Proximal margin and bisected tip in cassette A1. Additional sales representative printing cross-sections in cassette A2-A3. ([facility]; 07/16/2021) NRI/NRI 07/16/2021 1604 Local . 02 Pathologist provided ICD-10: K35.80 . 02 CPT . 148236 Specimen Comment: A courtesy copy of this report has been sent to [phone] Specimen Comment: [phone], Specimen Comment: Report sent to , DR SCHROEDER / DR SINGH Specimen Comment: A duplicate report has been generated due to demographic updates. Performed at: [address], [place] [id number] MD Tomas Woodall MD Phone: [phone] Performed at: [address] [id number] MD Juan C Haney MD Phone: [phone]
--- NOTE | 2021-07-20 07:13 | PDOC3 ---
[facility]-Discharge Summary Date of Admission: Date of Admission: Jul 14, 2021 Date of Discharge: Date of Discharge: Jul 16, 2021 Discharge Diagnosis: Discharge Diagnosis: Acute abdominal pain secondary to acute appendicitis Severe hypokalemia RUPERTO due to vasomotor nephropathy Hyperglycemia without a reported history of diabetes Elevated alkaline phosphatase Morbid obesity History of asthma History of hypothyroidism History of hypertension Hospital Course: Hospital Course: 45-year-old female with past medical history of asthma, hypertension, hypothyroidism who presents with right lower quadrant abdominal pain in the past 24 hours. No other endorsed symptoms. Denies any fevers, chest pain, diarrhea, dysuria, bloody stools or nausea vomiting. 07/15/21 No acute events overnight. Tolerating diet and having appropriate incisional abdominal pain. Repeat Cr elevated at 1.5, baseline at 1.0. Will continue to trend Cr. Continue with IVF. Plan for discharge in the morning. By time of hospital discharge patient was clinically stable. Creatinine remained stable and somewhat improved to 1.5. Patient was tolerating p.o. and ambulating without any difficulties. Pain was well controlled. Rest of hospital course was uneventful. Disposition: Disposition/Orders: D/C to Home Activity: Activity: Resume previous activity Diet: Diet: Cardiac Medications: Home Meds Active Scripts Oxycodone/Apap 5-325 (PERCOCET 5-325 MG TABLET ) 1 Each Tablet, 1 TAB PO PRN Q6HRS PRN for PAIN for 3 Days, #12 TAB 0 Refills Prov:TRI SCHROEDER MD 07/16/21 Potassium Chloride (POTASSIUM CHLORIDE ) 20 Meq Tablet.er, 20 MEQ PO DAILY, #10 TAB.SR Prov:KATHY TORRES MD 09/04/17 Reported Medications Albuterol Sulfate (Ventolin Hfa) 8 Gm Hfa.aer.ad, 1 PUFF IN PRN Q4-6HRS PRN for SHORTNESS OF BREATH 07/14/21 Cyclobenzaprine Hcl (CYCLOBENZAPRINE HCL) 10 Mg Tablet, 1 TAB PO PRN TID PRN for MUSCLE SPASMS 07/14/21 Omeprazole (OMEPRAZOLE) 40 Mg Capsule.dr, 1 CAP PO DAILY for gerd 07/14/21 Levothyroxine Sodium (LEVOTHYROXINE SODIUM) 25 Mcg Tablet, 1 TAB PO DAILY for hypothyroid 07/14/21 Varenicline Tartrate (Varenicline Tartrate) 1 Mg Tablet, 2 TAB PO DAILY for stop smoking 07/14/21 Cetirizine Hcl (CETIRIZINE HCL) 10 Mg Tablet, 1 TAB PO DAILY for allergies 07/14/21 Chlorthalidone (Chlorthalidone) 25 Mg Tablet, 1 TAB PO DAILY for hypertension 07/14/21 Discontinued Reported Medications Meloxicam (MELOXICAM) 7.5 Mg Tablet, 1 TAB PO DAILY for arthritic pain 07/14/21 Propranolol Hcl (PROPRANOLOL HCL) 80 Mg Tablet, 1 TAB PO BID for hypertension 07/14/21 Discontinued Scripts Ibuprofen (IBUPROFEN) 600 Mg Tablet, 600 MG PO PRN Q6HRS PRN for INFLAMMATION, #25 TAB Prov:CHAVOPADMA BARNESLuis Alfredo Zapata COUNTERSINKER 02/15/21 Scheduled Cetirizine Hcl (Cetirizine Hcl), 1 TAB PO DAILY, (Reported) Chlorthalidone (Chlorthalidone), 1 TAB PO DAILY, (Reported) Levothyroxine Sodium (Levothyroxine Sodium), 1 TAB PO DAILY, (Reported) Omeprazole (Omeprazole), 1 CAP PO DAILY, (Reported) Potassium Chloride (Potassium Chloride ), 20 MEQ PO DAILY Varenicline Tartrate (Varenicline Tartrate), 2 TAB PO DAILY, (Reported) Scheduled PRN Albuterol Sulfate (Ventolin Hfa), 1 PUFF IN PRN Q4-6HRS PRN for SHORTNESS OF BREATH, (Reported) Cyclobenzaprine Hcl (Cyclobenzaprine Hcl), 1 TAB PO PRN TID PRN for MUSCLE SPASMS, (Reported) Oxycodone/Apap 5-325 (Percocet 5-325 Mg Tablet ), 1 TAB PO PRN Q6HRS PRN for PAIN Discontinued Medications Ibuprofen (Ibuprofen), 600 MG PO PRN Q6HRS PRN for INFLAMMATION Meloxicam (Meloxicam), 1 TAB PO DAILY, (Reported) Propranolol Hcl (Propranolol Hcl), 1 TAB PO BID, (Reported) Total Time: Total Time: Total time spent was 32 minutes in preparing scripts, discharge planning with SWI and RN and preparing this discharge summary Patient seen and examined on day of discharge. No acute abnormal findings. Justicifation of Admission Dx: Justifications for Admission: Justification of Admission Dx: N/A TRI SCHROEDER MD Jul 20, 2021 07:13
== END 2021-07-16 12:40 | disposition home or self-care (01) ==
LOC: ER 06:29 → 5 NORTH 09:00 → INTOOBSV 09:00 → ER 09:31
PROVIDERS: ADMIT Internal Medicine; ATTEND Internal Medicine
DX: K35.80 Unspecified acute appendicitis (principal); Z20.822 Contact with and (suspected) exposure to COVID-19; E87.6 Hypokalemia; N20.0 Calculus of kidney; N17.0 Acute kidney failure with tubular necrosis; I10 Essential (primary) hypertension; E11.65 Type 2 diabetes mellitus with hyperglycemia; J45.909 Unspecified asthma, uncomplicated; E03.9 Hypothyroidism, unspecified; E66.01 Morbid (severe) obesity due to excess calories; J98.11 Atelectasis; I87.8 Other specified disorders of veins; G47.30 Sleep apnea, unspecified; Z90.710 Acquired absence of both cervix and uterus; Z98.891 History of uterine scar from previous surgery; Z98.51 Tubal ligation status; Z79.899 Other long term (current) drug therapy; Z98.890 Other specified postprocedural states; Z68.41 Body mass index [BMI] 40.0-44.9, adult
CPT/HCPCS: 36415; 44970; 74177; 80048; 80076; 83690; 83735; 84100; 84703; 85025; 87426; 88304; 96365; 96366; 96367; 96372; 96375; 96376; 99285; A4314; A4344; A4364; A4930; G0378; J0694; J1100; J1200; J1650; J1885; J2060; J2270; J2405; J2704; J2710; J3010; J3480; J3490; J7030; J7120; Q9967; 96361; 96374; A4315; G0379